=== PATIENT | female | born 1955 | race Caucasian/White ===

== ENCOUNTER 2021-06-13 21:46 | Emergency (ER) | payer MEDICARE, BC, OTHER, SELFPAY ==
[2021-06-13 22:09] VITALS: BP 134/73; PULSE 115; RESP 18; TEMP 36.9; O2SAT 93; BMI 51.5
--- NOTE | 2021-06-14 00:07 | W.ED.BACK ---
HPI - Back Pain/Injury General: Chief Complaint: Back Pain/Injury Stated Complaint: back pain Time Seen by Provider: 06/13/21 23:31 Source: patient and family Mode of arrival: wheelchair Limitations: no limitations History of Present Illness: HPI Narrative: Patient is a 65-year-old female who presents to ED today along with family for complaints of right sided back pain that has been present over the past week. Patient tells me she had identical symptoms back in January that lasted approximately a week and then subsided on its own. She tells me the pain today is worse than it was back in January. She is having radiation down into her right lower extremity below the knee. She is not having any issues with urinary retention or bowel incontinence. She denies saddle anesthesia. MD elicited complaint: back pain Pertinent past history: prior back pain Onset (ago): day(s) Timing: constant Severity: severe Similar Symptoms Previously: Yes Location: right lower back Radiation: right leg below the knee Exacerbating factors: movement and walking Associated symptoms: Reports no associated symptoms; Deny abdominal pain, chills, dysuria, fatigue, fever(s), nausea or vomiting Work related injury: No Review of Systems Const: Denies: fever(s), chills, body aches, fatigue or malaise Card: Denies: chest pain Resp: Denies: dyspnea GI: Denies: abdominal pain, nausea or vomiting : Denies: flank pain, difficulty voiding, dysuria or urinary frequency Musc: Reports: back pain; Denies: neck pain, extremity swelling, joint pain or joint swelling Neuro: Denies: headache(s), numbness in extremities, weakness in extremities or sensory changes Physical Exam Const: COMMON NORMALS: no acute distress, patient oriented x3, no limitations and alert NUTRITIONAL APPEARANCE: obese morbidly obese ORIENTATION/CONSCIOUSNESS: Yes awake, Yes oriented to person, Yes oriented to place and Yes oriented to time HENMT: COMMON NORMALS: normocephalic and atraumatic HEAD & SCALP: normocephalic and atraumatic Resp: COMMON NORMALS: normal respiratory effort Back/Pelvis: THORACIC SPINE/UPPER BACK: No thoracic spinal tenderness and No paraspinal muscle spasm LUMBAR SPINE/LOWER BACK: Yes pain with ROM, No lumbar spinal tenderness, Yes paraspinal muscle tenderness Lumbar paraspinal muscle tenderness: right and No paraspinal muscle spasm PELVIS: Yes sciatic notch tenderness on the right SACROILIAC JOINTS: Yes SI joint(s) abnormal (R) SACRUM: no tenderness BACK IMAGE (FEMALE): 1. TTP Neuro: COMMON NORMALS: patient oriented x3, moves all extremities, no focal motor deficits and no sensory deficits noted SENSORIUM/ORIENTATION: Yes alert, Yes oriented to person, Yes oriented to place and Yes oriented to time Skin: COMMON NORMALS: no rashes or lesions noted GENERAL SKIN EXAM: no rashes or lesions noted Course Vital Signs: Vital signs: Vital Signs Temperature 98.4 F 06/13/21 22:09 Pulse Rate 115 H 06/13/21 22:09 Respiratory Rate 18 06/13/21 22:09 Blood Pressure 134/73 06/13/21 22:09 Pulse Oximetry 93 06/13/21 22:09 Discharge Plan Discharge Patient Disposition: Home Clinical Impression: Sciatica Qualifiers: Laterality: right Qualified Code(s): M54.31 - Sciatica, right side Condition: Stable Prescriptions: New cyclobenzaprine 10 mg tablet 10 mg PO TID Qty: 14 RF: 0 prednisone 10 mg tablet 60 mg PO DAILY 5 Days Qty: 30 RF: 0 Discharge Orders: Discharge ED (Routine); Ordered 06/14/21 Ordered By: Gladys Rushing Patient Instructions: Sciatica (ED) Coding Level of Care Code 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
[2021-06-14] MEDS: morphine 4 mg/mL SDV 1 mL IM (00:50)
[2021-06-14] MEDS: dexamethasone 10 mg/mL INJ 8 MG IM (00:50)
[2021-06-14] MEDS: ketorolac 30 mg/mL INJ IM (00:50)
== END 2021-06-14 01:30 | disposition home or self-care (01) ==
PROVIDERS: Emergency Provider Physician Assistant
DX: M54.31 Sciatica, right side (principal)
CPT/HCPCS: 96372; 99283; J1100; J1885; J2270

== ENCOUNTER 2022-10-08 12:31 | Emergency (ER) | payer MEDICARE, BC, SELFPAY ==
[2022-10-08 12:53] VITALS: BP 160/83; PULSE 111; RESP 16; TEMP 36.4; O2SAT 95
[2022-10-08 13:06] LABS: Basophils # 0.1 10^3/uL (0.0-0.1); Basophils % 0.8 %; Eosinophils # 0.4 10^3/uL (0.0-0.8); Eosinophils % 5.4 %; Hematocrit 39.9 % (37.0-47.0); Hemoglobin 12.4 g/dL (11.5-15.3); Lymphocytes % 27.1 %; Mean Corpuscular HGB Conc 31.1 g/dL (30.0-36.0); Mean Corpuscular Hemoglobin 29.2 pg (28.0-34.0); Mean Corpuscular Volume 94.1 fl (81-99); Mean Platelet Volume 10.3 fL (7.4-10.4); Monocytes # 0.6 10^3/uL (0.2-0.9); Monocytes % 7.9 %; Neutrophils # 4.34 10^3/uL (1.8-7.7); Neutrophils % 58.4 %; Nucleated Red Blood Cells % 0 %; Platelet Count 329 10^3/cmm (130-400); Red Blood Count 4.24 10^6/uL (4.1-5.3); Red Cell Distribution Width 15.8 % (12.1-15.1); White Blood Count 7.4 10^3/uL (4.0-10.0)
[2022-10-08 13:19] LABS: Alanine Aminotransferase 9 U/L (0-33); Albumin Level 4.5 g/dL (3.5-5.2); Alkaline Phosphatase 94 U/L (35-105); Anion Gap 18.8 (5-19); Aspartate Amino Transferase 25 U/L (0-32); Blood Urea Nitrogen 33 mg/dL (8-23); Carbon Dioxide 22 mmol/L (22-29); Chloride 105 mmol/L (98-107); Globulin 3.6 g/dL (1.3-4.6); Glomerular Filtration Rate 37.3 mL/min (90-130); Glucose 98 mg/dL (65-115); Lipase 190 U/L (13-60); Osmolality Calculated 299 mOsm/kg (285-295); Potassium 4.8 mmol/L (3.5-5.1); Sodium 141 mmol/L (136-145); Total Bilirubin 0.3 mg/dL (0.15-1.2); Total Protein 8.1 g/dL (6.6-8.7)
== END 2022-10-08 13:42 | disposition left against medical advice (07) ==
PROVIDERS: Emergency Medicine; Emergency Provider Family Medicine; PCP Family Medicine
DX: M54.31 Sciatica, right side (principal)
CPT/HCPCS: 36415; 80053; 83690; 85025

== ENCOUNTER 2023-01-28 00:59 | Observation (INO) | payer MEDICARE, SELFPAY ==
[2023-01-28] VITALS (148 sets, daily range): BP systolic 82–127; BP diastolic 57–95; PULSE 72–108; RESP 9–27; TEMP 35.7–36.6; O2SAT 85–100; BMI 65.2; BMI 51.5
[2023-01-28 01:12] LABS: Glucose Point of Care 247 mg/dL (70-110)
--- NOTE | 2023-01-28 01:12 | XRR_ITS ---
PROCEDURE INFORMATION: Exam: XR Chest Exam date and time: 01/28/2023 1:30 AM Age: 67 years old Clinical indication: Cough and other: Low BP; Additional info: Hypotension, cough TECHNIQUE: Imaging protocol: Radiologic exam of the chest. Views: 1 view. COMPARISON: CR XR abdomen min 2V [id number] 10/08/2022 3:30 PM FINDINGS: Lungs: Unremarkable. No consolidation. Pleural spaces: Unremarkable. No pleural effusion. No pneumothorax. Heart/Mediastinum: Unremarkable. No cardiomegaly. Bones/joints: Unremarkable. XR/XR chest 1V portable [id number] IMPRESSION: No acute findings.
--- NOTE | 2023-01-28 01:16 | ECG_ITS ---
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 Measurements Intervals [place] Rate: 106 P: 27 GA: 219 QRS: -50 QRSD: 118 T: 89 QT: 318 QTc: 423 Interpretive Statements SINUS TACHYCARDIA WITH FIRST DEGREE AV BLOCK LEFT ANTERIOR FASCICULAR BLOCK [QRS AXIS <= -45, QR IN I, RS IN II] LEFT VENTRICULAR HYPERTROPHY AND ST-T CHANGE [VOLTAGE CRITERIA PLUS ST/T ABNORMALITY] POSSIBLE ANTEROLATERAL MYOCARDIAL INFARCTION , OF INDETERMINATE AGE [30 ms Q WAVE IN I/aVL/V3-V6] No previous ECG available for comparison Electronically Signed On 01-28-2023 16:02:03 CDT by Daniel Sotelo M.D. [id number]
[2023-01-28 01:24] LABS: Basophils % 0.2 %; Eosinophils # 0.3 10^3/uL (0.0-0.8); Eosinophils % 2.5 %; Hematocrit 38.9 % (37.0-47.0); Hemoglobin 11.4 g/dL (11.5-15.3); Lymphocytes # 1.9 10^3/uL (0.8-4.8); Mean Corpuscular HGB Conc 29.3 g/dL (30.0-36.0); Mean Corpuscular Hemoglobin 27.9 pg (28.0-34.0); Mean Corpuscular Volume 95.1 fl (81-99); Mean Platelet Volume 11.2 fL (7.4-10.4); Monocytes # 0.6 10^3/uL (0.2-0.9); Monocytes % 4.6 %; Neutrophils # 9.71 10^3/uL (1.8-7.7); Neutrophils % 77.3 %; Nucleated Red Blood Cells % 0 %; Platelet Count 310 10^3/cmm (130-400); Red Blood Count 4.09 10^6/uL (4.1-5.3); Red Cell Distribution Width 15.3 % (12.1-15.1); White Blood Count 12.6 10^3/uL (4.0-10.0)
[2023-01-28] MEDS: sodium chloride 0.9% 1,000 ML 999 ML IV ×3 (01:27→02:38)
[2023-01-28 01:30] LABS: INR 1.05 (0.8-1.2); Partial Thromboplastin Time 24.6 SECONDS (23.9-36.7)
--- NOTE | 2023-01-28 01:34 | W.ED.GENADLT ---
HPI - General Adult General: Chief complaint: General Medical Stated complaint: BG/HTN/itching Time Seen by Provider: 01/28/23 01:03 History of Present Illness: 67-year-old morbidly obese female who lives at home alone. She presents after becoming concerned this evening regarding a rash on her upper extremities and across her chest that itched violently. She also experienced dizziness and generalized weakness. She notes that she has not felt well for a few days. She has been battling constipation, and was placed on lactulose which she has been taking for about a week. She notes that she has had 4 bowel movements in the last day or so. She is having some stomach cramps. She has developed a cough. The rash is improved after administration of 25 mg of IV Benadryl in the ambulance. EMS crew noted her to have a soft blood pressure, as low as 80s systolic, and to be mildly tachycardic. This continues in the ER. She denies any fever Onset (ago): hour(s) Location: abdomen Radiation: non-radiation Severity: mild Quality: other (Cramping) Pain Consistency: intermittent Associated symptoms: Reports cough, decreased appetite, rash and weakness (Generalized); Deny chest pain, confusion, diaphoresis, dyspnea, fevers/chills, headache(s), nausea, palpitations, short of breath or syncope Review of Systems Const: Denies: fever(s), chills or diaphoresis Eyes: Denies: change in vision ENMT: Denies: throat pain Card: Denies: chest pain, palpitations or syncope Resp: Reports: non-productive cough; Denies: dyspnea GI: Reports: abdominal pain and GI cramping; Denies: nausea or hematochezia : Denies: difficulty voiding Skin/Breast: Reports: rash, pruritus and erythema Neuro: Denies: headache(s) or confusion [facility] ED PFSH: Medical History (Updated 01/28/23 @ 04:26 by Zeferino Lui MD) DM type 2 (diabetes mellitus, type 2) Gout HLD (hyperlipidemia) HTN (hypertension) Hypothyroidism Lumbago NSAID long-term use Sciatica Snake bite Solitary kidney Surgical History History of ankle surgery Family History Other Diabetes Heart disease Social History Lives independently: Yes Household members: none Physical Exam Const: GENERAL APPEARANCE: cooperative, ill appearing (Mildly) and frail appearing NUTRITIONAL APPEARANCE: obese ORIENTATION/CONSCIOUSNESS: Yes awake, Yes oriented to person, Yes oriented to place and Yes oriented to time HENMT: COMMON NORMALS: normocephalic, atraumatic and Normal external nose present HEAD & SCALP: normocephalic and atraumatic FACE & SINUS: normal facial exam and face symmetric NOSE: Normal external nose present Eye: COMMON NORMALS: Equal, round and reactive pupils present and EOMs intact bilaterally PUPIL: Yes Equal, round and reactive pupils present Neck/C-Spine: GENERAL: Yes trachea midline Chest: CHEST: Yes Symmetrical chest wall rise Resp: COMMON NORMALS: normal respiratory effort, No use of accessory muscles and clear to auscultation bilaterally AUSCULTATION: clear to auscultation bilaterally Cardio: COMMON NORMALS: regular rhythm RATE: tachycardic RHYTHM: regular rhythm GI: COMMON NORMALS: Normal to inspection, nondistended, normoactive bowel sounds present and Soft to palpation PALPATION: Yes Soft to palpation and Yes Tenderness to palpation present (GI) (Periumbilical) Extremity: GENERAL: Yes edema (Mild) Neuro: SENSORIUM/ORIENTATION: Yes oriented to person, Yes oriented to place and Yes oriented to time Psych: COMMON NORMALS: mental status grossly normal Skin: NARRATIVE SKIN EXAM: No urticarial lesions. Faint redness across the chest. Course Consultations: Consultation #1: Ngozi Vital Signs: Vital signs: Vital Signs Temperature 96.3 F L 01/28/23 04:06 Pulse Rate 95 01/28/23 04:15 Respiratory Rate 22 H 01/28/23 04:15 Blood Pressure 124/95 01/28/23 04:15 Pulse Oximetry 93 01/28/23 04:15 Oxygen Delivery Me thod 01/28/23 03:46 Oxygen Flow Rate 4 01/28/23 03:15 [facility] - General Adult Medical Decision Making 67-year-old female who is feeling unwell. She was hypotensive on arrival, and remained so after 1 L bolus. 2 more liters of been ordered. This patient is morbidly obese so 30 mL/kg bolus is not possible in this patient. Blood pressure has improved after 3 L, but she remains tachycardic. Blood pressure has been as low as 82 systolic. Currently 120. CBC shows a white blood cell count of 12.6 with a hemoglobin of 11.4. Her CRP however is only 8.2. Urinalysis is negative for urinary tract infection. Her BNP is only 103. She has acute kidney injury with a creatinine above her baseline at 2.6. Her lactate is 3.5. Blood cultures have been sent, she has been covered with Zosyn empirically although there does not seem to be a source of infection. Chest x-ray is negative for pneumonia or other acute finding. Abdominal CT does not reveal a source either. Because of the hypotension requiring significant fluid bolus, she will go to the ICU today. Spoke to the hospitalist who agrees to admit. Lab Data 01/28/23 01:05 01/28/23 01:05 Radiology Impressions Chest X-Ray 01/28/23 01:12 IMPRESSION: No acute findings. Abdomen/Pelvis CT 01/28/23 02:03 IMPRESSION: Negative for acute abdominopelvic pathology. COMMENTS: Consistent with the [place] [employer]'s Incidental Findings Committee white paper (J Am Theresa Radiol 2018): Any incidental renal lesion less than 1 cm or classified as too small to characterize, or any incidental cystic renal lesion characterized as simple-appearing, is likely benign. No follow-up imaging is recommended for these lesions per consensus recommendations based on imaging criteria. Laboratory Results WBC 12.6 10^3/uL (4.0-10.0) H 01/28/23 01:05 RBC 4.09 10^6/uL (4.1-5.3) L 01/28/23 01:05 Hgb 11.4 g/dL (11.5-15.3) L 01/28/23 01:05 Hct 38.9 % (37.0-47.0) 01/28/23 01:05 MCV 95.1 fl (81-99) 01/28/23 01:05 MCH 27.9 pg (28.0-34.0) L 01/28/23 01:05 MCHC 29.3 g/dL (30.0-36.0) L 01/28/23 01:05 RDW 15.3 % (12.1-15.1) H 01/28/23 01:05 Plt Count 310 10^3/cmm (130-400) 01/28/23 01:05 MPV 11.2 fL (7.4-10.4) H 01/28/23 01:05 Neut % (Auto) 77.3 % 01/28/23 01:05 Lymph % (Auto) 15.0 % 01/28/23 01:05 [place] % (Auto) 4.6 % 01/28/23 01:05 Eos % (Auto) 2.5 % 01/28/23 01:05 Baso % (Auto) 0.2 % 01/28/23 01:05 Neut # (Auto) 9.71 10^3/uL (1.8-7.7) H 01/28/23 01:05 Lymph # (Auto) 1.9 10^3/uL (0.8-4.8) 01/28/23 01:05 [place] # (Auto) 0.6 10^3/uL (0.2-0.9) 01/28/23 01:05 Eos # (Auto) 0.3 10^3/uL (0.0-0.8) 01/28/23 01:05 Baso # (Auto) 0.0 10^3/uL (0.0-0.1) 01/28/23 01:05 Nucleated RBC % (auto) 0 % 01/28/23 01:05 Nucleated RBCs # 0.0 /100WBC 01/28/23 01:05 PT 14.10 SECONDS (12.1-14.9) 01/28/23 01:05 INR 1.05 (0.8-1.2) 01/28/23 01:05 APTT 24.6 SECONDS (23.9-36.7) 01/28/23 01:05 Sodium 140 mmol/L (136-145) 01/28/23 01:05 Potassium 4.3 mmol/L (3.5-5.1) 01/28/23 01:05 Chloride 105 mmol/L (98-107) 01/28/23 01:05 Carbon Dioxide 20 mmol/L (22-29) L 01/28/23 01:05 Anion Gap 19.3 (5-19) H 01/28/23 01:05 BUN 44 mg/dL (8-23) H 01/28/23 01:05 Creatinine 2.6 mg/dL (0.5-0.9) H 01/28/23 01:05 GFR Calculation 18.3 mL/min (90-130) L 01/28/23 01:05 Glucose 226 mg/dL (65-115) H 01/28/23 01:05 POC Glucose 247 mg/dL (70-110) H 01/28/23 01:08 Calculated Osmolality 308 mOsm/kg (285-295) H 01/28/23 01:05 Lactate 3.5 mmol/L (0.5-2.2) H 01/28/23 01:05 Calcium 10.8 mg/dL (8.5-10.5) H 01/28/23 01:05 Magnesium 1.0 mg/dL (1.7-2.3) L 01/28/23 01:05 Total Bilirubin 0.2 mg/dL (0.15-1.2) 01/28/23 01:05 AST 22 U/L (0-32) 01/28/23 01:05 ALT < 5 U/L (0-33) 01/28/23 01:05 Alkaline Phosphatase 62 U/L (35-105) 01/28/23 01:05 Troponin T Baseline 16 ng/L (0-10) H 01/28/23 01:05 Troponin T 120 Minute 19.07 ng/L (0-10) H 01/28/23 03:10 Delta Troponin T 3.07 ABS# (0-10) 01/28/23 03:10 C-Reactive Protein 8.2 mg/L (0.0-4.9) H 01/28/23 01:05 NT-Pro-B Natriuret Pep 103 pg/mL (0-125) 01/28/23 01:05 Total Protein 5.7 g/dL (6.6-8.7) L 01/28/23 01:05 Albumin 3.3 g/dL (3.5-5.2) L 01/28/23 01:05 Globulin 2.4 g/dL (1.3-4.6) 01/28/23 01:05 TSH 6.20 uIU/mL (0.27-4.20) H 01/28/23 01:42 Random Cortisol 22.73 ug/dL (2.47-19.5) H 01/28/23 01:42 Urine Color Yellow (Yellow) 01/28/23 00:25 Urine Appearance Sl hazy (CLEAR) A 01/28/23 00:25 Urine pH 5 (5-7) 01/28/23 00:25 Ur Specific [place] 1.025 (1.005-1.030) 01/28/23 00:25 Urine Protein 2+ (Negative) H 01/28/23 00:25 Urine Glucose (UA) Norm (Normal) 01/28/23 00:25 Urine Ketones 1+ (Negative) H 01/28/23 00:25 Urine Blood Neg (Negative) 01/28/23 00:25 Urine Nitrate Negative (Negative) 01/28/23 00:25 Urine Bilirubin 1+ (Negative) H 01/28/23 00:25 Urine Urobilinogen 1 mg/dL (Negative) H 01/28/23 00:25 Ur Leukocyte Esterase Trace (Negative) H 01/28/23 00:25 Urine RBC 0-4 /hpf (0-2) H 01/28/23 00:25 Urine WBC 5-10 /hpf (0-5) H 01/28/23 00:25 Ur Squamous Epith Cells 0-4 /hpf (0-5) H 01/28/23 00:25 Calcium Oxalate Crystal 0-4 /hpf H 01/28/23 00:25 Amorphous Sediment 1+ /hpf 01/28/23 00:25 Urine Bacteria Trace /hpf (NONE) 01/28/23 00:25 Ur Random Sodium 49 mmol/L 01/28/23 00:25 Urine Creatinine 333 mg/dL (28-217) H 01/28/23 00:25 Critical Care Time Critical Care Time: Critical Care Time: Yes Total Critical Care Time: 35 Attestation: This case had a high probability of a clinically significant, sudden, or life threatening deterioration of this patient's condition which required my full and direct attention, intervention and personal management. Time is independent of any procedures performed. 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
[2023-01-28 01:41] LABS: Lactate (Lactic Acid level) 3.5 mmol/L (0.5-2.2)
[2023-01-28 01:51] LABS: Alanine Aminotransferase < 5 U/L (0-33); Albumin Level 3.3 g/dL (3.5-5.2); Alkaline Phosphatase 62 U/L (35-105); Blood Urea Nitrogen 44 mg/dL (8-23); C Reactive Protein 8.2 mg/L (0.0-4.9); Calcium 10.8 mg/dL (8.5-10.5); Carbon Dioxide 20 mmol/L (22-29); Chloride 105 mmol/L (98-107); Globulin 2.4 g/dL (1.3-4.6); Glomerular Filtration Rate 18.3 mL/min (90-130); Glucose 226 mg/dL (65-115); NT Pro B Type Natriuretic Pept 103 pg/mL (0-125); Osmolality Calculated 308 mOsm/kg (285-295); Sodium 140 mmol/L (136-145); Total Bilirubin 0.2 mg/dL (0.15-1.2); Total Protein 5.7 g/dL (6.6-8.7)
[2023-01-28 01:57] LABS: Anion Gap 19.3 (5-19); Aspartate Amino Transferase 22 U/L (0-32); Potassium 4.3 mmol/L (3.5-5.1)
[2023-01-28 01:58] LABS: Troponin(5th) Baseline 16 ng/L (0-10)
[2023-01-28 01:59] LABS: Add Urine Culture? No; Add Urine Microscopic? YES; Amorphous Sediment Urine 1+ /hpf; Bacteria Urine TRACE /hpf; Bilirubin Urine 1+ (Negative); Blood Urine Neg (Negative); Calcium Oxalate Crystals Urine 0-4 /hpf; Glucose Urine UA Norm (Normal); Ketones Urine 1+ (Negative); Leukocyte Esterase Urine Trace (Negative); Nitrate Urine Negative (Negative); Protein Urine 2+ (Negative); RBC Urine 0-4 /hpf (0-2); Specific Gravity, Urine 1.025 (1.005-1.030); Squamous Epithelial Cell Urine 0-4 /hpf (0-5); Urine Appearance SL Hazy (CLEAR); Urine Color Yellow (Yellow); Urobilinogen Urine 1 mg/dL (Negative); pH Urine 5 (5-7)
--- NOTE | 2023-01-28 02:03 | CTR_ITS ---
PROCEDURE INFORMATION: Exam: CT Abdomen And Pelvis Without Contrast Exam date and time: 01/28/2023 2:15 AM Age: 67 years old Clinical indication: Abdominal pain; Generalized; Additional info: Abdominal pain, vomiting, diarrhea, hypotension TECHNIQUE: Imaging protocol: Computed tomography of the abdomen and pelvis without contrast. Radiation optimization: All CT scans at this facility use at least one of these dose optimization techniques: automated exposure control; mA and/or kV adjustment per patient size (includes targeted exams where dose is matched to clinical indication); or iterative reconstruction. REPORTING DATA: Count of CT and Cardiac NM exams in prior 12 months: This patient has received 0 known CTs and 0 known cardiac nuclear medicine studies in the 12 months prior to the current study. COMPARISON: CR XR abdomen min 2V [id number] 10/08/2022 3:30 PM RADIATION DOSE METRICS: Total DLP (mGy-cm): 1238.31 FINDINGS: Liver: Normal. No mass. Gallbladder and bile ducts: Cholelithiasis. Gallbladder is relatively contracted. No definite wall thickening. Negative for biliary system dilation. Pancreas: Normal. No ductal dilation. Spleen: Normal. No splenomegaly. Adrenal glands: Normal. No mass. Kidneys and ureters: Left kidney is absent. Simple cortical cyst of the upper right kidney. Negative for hydronephrosis. Negative for renal stones. Stomach and bowel: Mild severity scattered diverticulosis coli. Negative for bowel wall inflammatory changes. Negative for bowel obstruction. Negative for bowel perforation. Negative for pneumatosis intestinalis. No focal bowel mass. Appendix: Normal appendix. Intraperitoneal space: Unremarkable. No free air. No significant fluid collection. Vasculature: Unremarkable. No abdominal aortic aneurysm. Lymph nodes: Unremarkable. No enlarged lymph nodes. Urinary bladder: Bladder is decompressed. Reproductive: Unremarkable as visualized. Bones/joints: The lumbar spine demonstrates marked discogenic and apophyseal joint degenerative changes at multiple levels. Grade 1 L4-L5 spondylolisthesis. No acute fracture. Soft tissues: Unremarkable. CT/CT abdomen pelvis wo con [id number] IMPRESSION: Negative for acute abdominopelvic pathology. COMMENTS: Consistent with the [place] [employer]'s Incidental Findings Committee white paper (J Am Theresa Radiol 2018): Any incidental renal lesion less than 1 cm or classified as too small to characterize, or any incidental cystic renal lesion characterized as simple-appearing, is likely benign. No follow-up imaging is recommended for these lesions per consensus recommendations based on imaging criteria.
[2023-01-28] MEDS: piperacillin-tazobactam 3.375 GM in sodium chloride 0.9% (plus) 50 ML IV ×2 (02:26→15:05)
[2023-01-28] MEDS: ondansetron 2 mg/ML SDV 2 mL 4 MG IVP (02:33)
[2023-01-28] MEDS: fentaNYL 50 mcg/mL INJ 2mL IVP (02:37)
--- NOTE | 2023-01-28 03:16 | ECG_ITS ---
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 Measurements Intervals [place] Rate: 97 P: 25 HI: 241 QRS: -40 QRSD: 124 T: 36 QT: 324 QTc: 412 Interpretive Statements SINUS RHYTHM WITH FIRST DEGREE AV BLOCK LEFT AXIS DEVIATION [QRS AXIS < -30] VOLTAGE CRITERIA FOR LVH [MEETS CRITERIA IN ONE OF: R(aVL), S(V1), R(V5), R(V5/V6)+S(V1)] POSSIBLE ANTERIOR MYOCARDIAL INFARCTION , OF INDETERMINATE AGE [30 ms Q WAVE IN V3/V4, OR R < 0.2 mV IN V4] Compared to ECG 01/28/2023 01:11:51 Left-axis deviation now present Sinus tachycardia no longer present Left anterior fascicular block no longer present ST (T wave) deviation no longer present Myocardial infarct finding still present Electronically Signed On 01-28-2023 16:05:17 CDT by Daniel Sotelo M.D. [id number]
[2023-01-28 03:33] LABS: Cortisol Random 22.73 ug/dL (2.47-19.5)
[2023-01-28 03:35] LABS: Troponin 5 2HR 19.07 ng/L (0-10)
--- NOTE | 2023-01-28 03:44 | P.HP_ITS ---
Providers/Chief Complaint Admitting Physician: Zeferino Lui Primary Care Provider: Lexus Umanzor MD Chief Complaint: BG/HTN/itching History of Present Illness 67-year-old lady with history of solitary kidney, DM2, HTN, HLD, hypothyroidism, chronic NSAID use, gout came into ER for evaluation due to malaise, generalized weakness of several days, previously constipated, has been taking lactulose for a while, now with multiple loose stools, abdominal cramping/pain. Today she was also dizzy/subjectively presyncopal. At home was found tachycardic, hypotensive by EMS also with intensely pruritic rash across the chest and arms for which she received 25 mg of Benadryl. By the time of arrival to the hospital rash has resolved. In ER blood pressure 82/67, sinus tachycardia 108, hypothermic 96.3F. Mild abdominal cramping, pain. Leukocytosis 12.6, anemia 11.4. Bicarb 20, anion gap 19.3, lactic acid 3.5. BUN 44, creatinine 2.6. Glucose 247. Calcium 10.8, magnesium 1. Unremarkable liver Giurgius. Baseline troponin 16, troponin 19. NT proBNP only 103. EKG with first-degree AV block. LVH. CRP 8.2. Total protein 5.7, albumin 3.3. Globulin 2.4. TSH 6.2. Random cortisol 22.7. UA hazy with 2+ protein, 1+ ketones, 1+ bilirubin, 1 urobilinogen, 5-10 WBC, 0-4 RBC, 0.4 SEC, 0-4 calcium oxalate crystals. Amorphous sediment. Trace bacteria. Chest x-ray unremarkable. CT abdomen pelvis negative for acute abdominal pathology. Received 3 L fluid bolus, empirically started on Zosyn after collection of blood cultures. Received pain and nausea medication. Review of Systems Const: Reports: malaise and change in sleep pattern (Insomnia); Denies: fever(s) or chills ENMT: Denies: throat pain or ear or mastoid pain Card: Denies: chest pain, edema, pre-syncope or dyspnea on exertion Resp: Denies: dyspnea, productive cough, change in phlegm color or hemoptysis GI: Reports: abdominal pain (periumbilical cramping), nausea, diarrhea and constipation; Denies: vomiting, hematochezia or melena : Denies: flank pain, urinary frequency or hematuria Musc: Denies: back pain, joint swelling or joint redness Skin/Breast: Reports: rash (Pruritic rash on chest, arms); Denies: new lesions Neuro: Denies: headache(s), numbness in extremities, weakness in extremities, dizziness, confusion or seizure-like activity Endo: Denies: polyuria or polydipsia Juan Alberto/Lymph: Denies: easy bleeding or tender lymph nodes All/Imm: Reports: other (Itchy rash on chest, arms); Denies: tongue swelling Medications/Allergies Home Medications Medication Instructions Recorded Confirmed Last Taken Type cyclobenzaprine 10 mg tablet 10 mg PO TID #14 tabs 06/14/21 Unknown Rx Allergies Allergy/AdvReac Type Severity Reaction Status Date / Time No Known Allergies Allergy Verified 01/28/23 01:10 PFSH Acute PFSH: Medical History DM type 2 (diabetes mellitus, type 2) Gout HLD (hyperlipidemia) HTN (hypertension) Hypothyroidism Lumbago NSAID long-term use Sciatica Snake bite Solitary kidney Surgical History History of ankle surgery Family History Other Diabetes Heart disease Social History (Updated 01/28/23 @ 04:56 by Zeferino Lui MD) Smoking and tobacco status: never smoked Lives independently: Yes Household members: none Marital status: Single Vitals/I&O/Wt Last Vital Signs Temp 96.4 F L 01/28/23 01:01 Pulse 93 01/28/23 03:27 Resp 20 H 01/28/23 03:27 BP 125/74 01/28/23 03:27 Pulse Ox 99 01/28/23 03:27 O2 Del Method 01/28/23 03:15 O2 Flow Rate 4 01/28/23 03:15 01/27/23 01/27/23 01/28/23 14:59 22:59 06:59 Intake Total 2049 Balance 2049 Weight last 48 hrs Weight 172.365 kg Physical Exam Const: COMMON NORMALS: patient oriented x3 and alert GENERAL APPEARANCE: cooperative NUTRITIONAL APPEARANCE: obese morbidly obese ORIENTATION/CONSCIOUSNESS: Yes awake HENMT: COMMON NORMALS: oropharynx normal Neck/C-Spine: COMMON NORMALS: no JVD Resp: COMMON NORMALS: normal respiratory effort and clear to auscultation bilaterally AUSCULTATION: clear to auscultation bilaterally Cardio: COMMON NORMALS: no JVD, regular rhythm, S1 normal heart sound present, S2 normal heart sound present and No murmurs present (Cardio) RHYTHM: regular rhythm HEART SOUNDS: S1 normal heart sound present and S2 normal heart sound present GI: COMMON NORMALS: Normal to inspection, nondistended, normoactive bowel sounds present and Soft to palpation PALPATION: Yes Soft to palpation and Yes Tenderness to palpation present (GI) (Periumbilical) Extremity: COMMON NORMALS: no joint enlargement and no pedal edema Neuro: COMMON NORMALS: patient oriented x3 and moves all extremities SENSORIUM/ORIENTATION: Yes alert Skin: COMMON NORMALS: no rashes or lesions noted GENERAL SKIN EXAM: no rashes or lesions noted OTHER: Pruritic rash on chest and arms resolved. Bilateral angular cheilitis. Sepsis: Is patient septic: Yes Focused sepsis exam performed: Yes Data 01/28/23 01:05 01/28/23 01:05 Micro: Microbiology 01/28/23 01:41 Blood Culture - Preliminary Blood SPECIMEN COLLECTED 01/28/23 01:38 Blood Culture - Preliminary Blood SPECIMEN COLLECTED A&P Assessment and plan (1) SIRS (systemic inflammatory response syndrome): Possible sepsis with leukocytosis 12.6, predominantly neutrophilic, sinus tachycardia 108, on presentation hypotensive, with lactic acidosis 3.5. Does not have a clear source of sepsis. Has been having loose stools/diarrhea, will collect for C. difficile, stool culture, although has also been taking lactulose after having constipation. Rash at home pruritic, across chest and arms, resolved after Benadryl, currently no rash. Noted UA with some abnormality, 5- 10 WBC, trace bacteria, denies urinary symptoms. Requesting urine culture. No meningeal signs to suggest [employer] infection. Blood culture collected in ER. Follow-up. For now empirically continue Zosyn, reassess. (2) Acute hypotension: Possibly hypovolemic after multiple loose stools, does appear slightly dehydrated, has received fluid challenge in ER with good response. Cannot exclude possible septic shock given the above, with endorgan injury with SHANA, hypoperfusion with lactic acidosis, for now empirically continue Zosyn. Hold lisinopril and amlodipine. Additionally appears to be hypothyroid as below. Cortisol checked and appears adequate. Abnormal troponin. LVH on EKG. Assess TTE. Anemia, check Hemoccult. (3) SHANA (acute kidney injury): Creatinine 2.6, BUN 44. She has only a solitary kidney. Prior creatinine 1.4 in September 2020. Does take naproxen at home, discussed with her to discontinue. Please DC at discharge. Hold lisinopril. Urine studies obtained, my interpretation prerenal SHANA, she was hypotensive on presentation. Received fluid challenge. Reassess renal function, monitor I&O. No obstruction on CT. Check CK. (4) Metabolic acidosis: Metabolic acidosis with lack cirrhosis, however, also ketones in urine with history of diabetes. Malaise, abdominal discomfort, dehydration, hypotension, hyperglycemia, may be in mild to moderate ketoacidosis as well. Check serum ketones, check VBG. States that she takes metformin at home. Hold here. Sliding scale insulin for now pending other studies. Additionally in SHANA may be contributing to acidosis. Reassess renal function after fluid challenge. Additionally multiple loose stools after lactulose. (5) Abnormal urinalysis: Denies urinary symptoms. Urine culture requested. Follow-up. For now empirically on Zosyn as above. (6) Troponin level elevated: Discussed with her abnormal troponin level as well. Baseline 16, 2-hour troponi n 19.07. Suspect demand ischemia secondary to hypotension. She denies any chest pain or pressure. Does have risk factors of CAD. Will assess TTE. Consider further assessment/risk stratification here or outpatient depending on clinical progress and findings. Continue low-dose aspirin. Consider beta-rommel when no longer hypotensive. Consider resuming statin after CK results. (7) Hypothermia: There are other. TSH checked, noted elevated 6.2. On levothyroxine at home, dose currently unknown. Requested medications to be confirmed. Check free T4. Consider increasing levothyroxine dose. Cortisol appears adequate. (8) DM type 2 (diabetes mellitus, type 2): On metformin at home. Sliding scale insulin here. Additionally requesting serum ketones, VBG. Urine ketones positive. Metabolic acidosis. Dehydrated/hypovolemic. (9) Hypomagnesemia: Replace magnesium. Recheck level. (10) NSAID long-term use: Discontinue Only has 1 kidney. (11) Cheilitis: Bilateral angular cheilitis. Could be secondary to difficulty with mastication. Does have anemia as well. Check B12, consider other B vitamins, check iron panel. Consider follow-up for assessment of other causes and deficiencies. (12) Anemia: Normocytic anemia. Hemoglobin 11.4. Previously 12.4 in September 2022. This is while she is also hypovolemic, suspect this may be lower after fluid resuscitation. Check Hemoccult. TIBC, ferritin. Has angular cheilitis as well. Check B12. Folic acid. (13) Pruritic rash: Resolved with 25 mg Benadryl in route to the hospital. Unclear cause. Sounds possibly urticarial/allergic but rash is now resolved, no further details available. Follow-up for recurrence. Review medications once available. (14) Abdominal cramping: Again having periumbilical abdominal cramping. Check lipase. CT abdomen pelvis results appreciated, no acute abnormality noted. May be due to hypermobile bow el with diarrhea, possibly secondary to lactulose. Additionally checking C. difficile, stool culture as above. Does have bilateral colitis, CRP only mildly elevated. Does not seem to have history of IBD, but if symptoms do not resolve with holding bowel regimen or recurrent, may be something to consider. No hematochezia or melena. Required IV fentanyl for pain in ER. Monitor condition. (15) Hypothyroidism: Noted TSH 6.2. Requested free T4. Requested medications to be confirmed. Please review, resume consider increasing levothyroxine. Follow-up thyroid function after discharge. (16) Hypercalcemia: Calcium 10.8, albumin 3.3, but was hypovolemic on presentation. Received fluid challenge. Repeat calcium level. Follow-up for persistent hypercalcemia. (17) LVH (left ventricular hypertrophy): By EKG. History of hypertension. Currently hypotensive. Assess TTE. (18) Morbid obesity: Follow-up with primary provider for weight loss options. Plan Loose stools: After taking lactulose and MiraLAX. Hold. For loose/diarrhea stools. Check C. difficile, stool culture. Recent constipation: Was taking lactulose and MiraLAX, does not want to take them anymore. Insomnia: Request for something to help her sleep. Discussed with her regarding trazodone. She would like to try it. HTN: Antihypertensives on hold currently. HLD Requested home medications to be confirmed, please reconcile once available. ER documentation reviewed, discussed with ER physician. Attestations Medical Necessity Statement*: Admission of over 2 midnights anticipated for assessment management of SIRS, possible sepsis with unclear source, hypovolemia, metabolic acidosis, ketosis, SHANA, hypomagnesemia, hypercalcemia, additional comorbidities as above. and High Time for a total of 95 minutes, includes reviewing past or interval history, examining/interviewing patient, placing orders, counseling patient/family/other support, communicating with other healthcare providers, documenting encounter and coordinating care Diagnoses SIRS (systemic inflammatory response syndrome) R65.10 Acute hypotension I95.9 SHANA (acute kidney injury) N17.9 Metabolic acidosis E87.20 Abnormal urinalysis R82.90 Troponin level elevated R77.8 Hypothermia T68.XXXA DM type 2 (diabetes mellitus, type 2) E11.9 Hypomagnesemia E83.42 NSAID long-term use Z79.1 Cheilitis K13.0 Anemia D64.9 Pruritic rash L28.2 Abdominal cramping R10.9 Hypothyroidism E03.9 Hypercalcemia E83.52 LVH (left ventricular hypertrophy) I51.7 Morbid obesity E66.01
[2023-01-28 03:45] LABS: Troponin 5 2HR Delta 3.07 ABS# (0-10)
--- NOTE | 2023-01-28 03:54 | USCV_ITS ---
Moerna Eubanks Age: 67 Gender: F : 1955 Exam Date: 01/28/2023 08:42 Ordering Phys: Zeferino Lui MD Technologist: Reggie Camacho Exam Location: [facility] [place] Indication: chf chest pain BP: 100 / 54 HR: 78 Rhythm: Sinus Technical Quality: Adequate MEASUREMENTS (Male / Female) Normal Values 2D ECHO LV Diastolic Diameter PLAX 3.4 cm 4.2 - 5.9 / 3.9 - 5.3 cm LV Systolic Diameter PLAX 2.2 cm IVS Diastolic Thickness 0.8 cm 0.6 - 1.0 / 0.6 - 0.9 cm IVS Systolic Thickness 0.8 cm LVPW Diastolic Thickness 0.9 cm 0.6 - 1.0 / 0.6 - 0.9 cm LVPW Systolic Thickness 1.4 cm LVOT Diameter 2.0 cm LV Ejection Fraction 2D Teich 64.5 % LV Ejection Fraction MOD 2C 65.1 % LV Ejection Fraction 2C AL 64.6 % LA Diameter 3.2 cm IVC Diameter 1.6 cm M-MODE Aortic Annulus Diameter 3.2 cm LA Ao Ratio MM 1.1 MV E Point Septal Separation 0.9 cm DOPPLER AV Peak Velocity 101.0 cm/s LVOT Peak Velocity 99.0 cm/s AV Area Cont Eq vti 3.2 cm squared AV Area Cont Eq pk 3.1 cm squared MV Area PHT 5.0 cm squared Mitral E to A Ratio 0.6 MV E' Velocity 39.5 cm/s Mitral E to MV E' Ratio 5.4 Mitral E to LV E' Lateral Ratio 6.8 Mitral E to LV E' Septal Ratio 4.5 TR Peak Velocity 104.0 cm/s TR Peak Gradient 4.3 mmHg TV Peak E Velocity 106.0 cm/s Right Atrial Pressure 3.0 mmHg Pulmonary Artery Systolic Pressu 7.3 mmHg RV Acceleration Time 0.1 s FINDINGS Left Ventricle Normal left ventricular size and systolic function, EF 66 %. No regional wall motion abnormalities.Grade I/IV diastolic dysfunction (abnormal relaxation filling pattern), normal to mildly elevated filling pressures. Right Ventricle The right ventricle is normal in size and function. Right Atrium The right atrium is normal in size. Left Atrium The left atrium is normal in size. Mitral Valve Mildly thickened mitral valve. Aortic Valve No gross abnormalities noted Tricuspid Valve No gross abnormalities noted Pulmonic Valve Not visualized well Pericardium Normal pericardium without effusion. Aorta Normal ascending aorta dimension. IVC Inferior vena cava not visualized. CONCLUSIONS Normal left ventricular size and systolic function, EF 66 %. No regional wall motion abnormalities. Type I diastolic dysfunction. The right ventricle is normal in size and function. Normal cardiac chamber sizes. No significant valvular lesions. There is no pericardial effusion. No similar previous studies are available for comparison Dr Steev Albright MD [facility] (Electronically Signed) Final Date: 28 January 2023 18:23 S
[2023-01-28] MEDS: pantoprazole 40 mg SDV IVP (04:12)
[2023-01-28] MEDS: magnesium sulfate premix 2 GM/50 ML PIGGYBACK IV (04:12)
[2023-01-28] MEDS: heparin 5,000 unit/mL INJ 1 mL 5000 UNIT SUBCUT ×2 (04:12→15:04)
[2023-01-28 04:17] LABS: Urine Creatinine 333 mg/dL (28-217); Urine Random Sodium 49 mmol/L
[2023-01-28 05:49] LABS: Estmated Average Glucose 108; Hemoglobin A1C 5.4 % (4.0-6.0)
[2023-01-28 05:55] LABS: Creatine Phosphokinase 30 U/L (26-192); Ferritin 62 ng/mL (15-150); Iron 30 ug/dL (37-145); Ketone (Acetest) Serum Negative (Negative); Lipase 54 U/L (13-60); Total Iron Binding Capacity 271 mcg/dl; Unsaturated Iron Binding 241 ug/dL (112-347)
[2023-01-28 06:08] LABS: Vitamin B12 417 pg/mL (232-1245)
[2023-01-28 06:09] LABS: Base Excess VBG -0.7 mmol/L (-3.0-3.0); Blood Gas Sample Site Not specified; Blood Gas Sample Type Venous; HCO3 VBG 24.8 mmol/L (24-28); Oxygen Device NC; PCO2 VBG 43.5 mmHg (41-51); PO2 VBG 51.5 mmHg (25-40); Venous Blood Gas Hematocrit 33.3 % (37-47); pH VBG 7.37 (7.32-7.42)
[2023-01-28 06:24] LABS: Free T4 Free Thyroxine 1.63 ng/dL (0.82-1.77)
[2023-01-28 06:26] LABS: Folate Level > 20.0 ng/mL (4.8-37.3)
[2023-01-28 07:21] LABS: Troponin 5 6HR 24.31 ng/L (0-10)
[2023-01-28 07:23] LABS: Troponin 5 6HR Delta 8.31 ng/L (0-12)
[2023-01-28 07:30] LABS: Anion Gap 11.4 (5-19); Blood Urea Nitrogen 42 mg/dL (8-23); Calcium 10.2 mg/dL (8.5-10.5); Carbon Dioxide 24 mmol/L (22-29); Chloride 111 mmol/L (98-107); Glucose 111 mg/dL (65-115); Magnesium 1.5 mg/dL (1.7-2.3); Osmolality Calculated 305 mOsm/kg (285-295); Phosphorus 2.6 mg/dL (2.5-4.5); Potassium 4.4 mmol/L (3.5-5.1); Sodium 142 mmol/L (136-145)
[2023-01-28] MEDS: aspirin 81 mg EC Tablet PO (08:25)
--- NOTE | 2023-01-28 09:26 | ECG_ITS ---
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 Measurements Intervals [place] Rate: 75 P: 32 VT: 248 QRS: -36 QRSD: 125 T: 37 QT: 356 QTc: 398 Interpretive Statements SINUS RHYTHM WITH FIRST DEGREE AV BLOCK LEFT AXIS DEVIATION [QRS AXIS < -30] POSSIBLE LEFT VENTRICULAR HYPERTROPHY [VOLTAGE CRITERIA PLUS LAE OR QRS WIDENING] POSSIBLE LATERAL MYOCARDIAL INFARCTION , PROBABLY OLD [30 ms Q WAVE IN I/aVL/V5/V6] Compared to ECG 01/28/2023 03:15:22 No significant changes Electronically Signed On 01-28-2023 16:05:14 CDT by Daniel Sotelo M.D. [id number]
--- NOTE | 2023-01-28 10:22 | PC.CHAP ---
Pastoral Care Encounter/Spiritual Assessment Type of Contact [] Declined telegraph service clerk visit [] Patient/Family/Request visit [] Outpatient visit [] Follow-up visit [] Physician referral [] Code/Alert [x] Routine visit [] Staff referral [] Actively dying [] Patient sleeping [] Family support [] [] Out of room [] Palliative care [] [] Receiving care in room [] Pre-surgical visit [] Trauma [] Long length of stay [x] ICU visit [] Other: Relational/Emotional Strength [] Patient feels connected with others/family/visitors/staff [] Distress [] Loneliness/isolation [] Abandonment Spirituality of Patient [] Person of Farzaneh [] Attends Religious of their Farzaneh [] Believes in Prayer [] Reads Bible or Sikhism materials [] There are Spiritual issues to be addressed Product Safety Specialist Interventions [x] Prayer [] Active listening [] Non-anxious presence [] Spiritual/emotional support [] Crisis/trauma care [] Spiritual counseling [] Bereavement support [] Provided bereavement packet [] Provided Bible/devotional materials [] Provided toy/stuffed animal, coloring book to patient or family member [] Provided Communion [] Anointing/[place] [] Salvation [x] Completed spiritual assessment [] Other: Impact on Illness or Injury [] Angry [] Fearful [] Anxious [] Often cries [] Exhaustion [] Unable to work [] Unable to attend jain [] Unable to walk/stand [] Unable to read [] Unable to drive [] Unable to eat/drink [] Unable to sleep [] Unable to be with family [] Patient intubated [] Other: Summary Time spent with patient
[2023-01-28 12:02] LABS: Glucose Point of Care 91 mg/dL (70-110)
[2023-01-28] MEDS: lanolin oint 7 gm 1 APPLIC TOPICAL (15:04)
[2023-01-28 16:43] LABS: Glucose Point of Care 84 mg/dL (70-110)
--- NOTE | 2023-01-28 17:21 | PM.MISC ---
Miscellaneous Note Purpose of Documentation: Overnight labs and H&P reviewed. Patient's blood pressure is now more stable. It is 115/69 at the time of assessment. She denies any complaints. Has not had any repeat diarrhea while here. She is complaining of a rash which she had noted even at home. We will add Benadryl for the same. She is awake alert and oriented x3. We will continue IV fluids for now and monitor her closely
[2023-01-28] MEDS: diphenhydrAMINE 12.5 mg/5 mL UDC 10 mL PO (17:59)
[2023-01-28 20:29] LABS: Glucose Point of Care 119 mg/dL (70-110)
[2023-01-28] MEDS: trazodone 50 mg Tablet 25 MG PO (21:01)
[2023-01-29] VITALS (25 sets, daily range): BP systolic 100–130; BP diastolic 57–91; PULSE 69–102; RESP 12–26; TEMP 36.1–36.9; O2SAT 84–98
[2023-01-29] MEDS: piperacillin-tazobactam 3.375 GM in sodium chloride 0.9% (plus) 50 ML IV ×2 (02:36→15:01)
[2023-01-29 03:44] LABS: Basophils % 0.4 %; Eosinophils # 0.5 10^3/uL (0.0-0.8); Eosinophils % 8.8 %; Hematocrit 31.3 % (37.0-47.0); Hemoglobin 9.5 g/dL (11.5-15.3); Lymphocytes # 1.7 10^3/uL (0.8-4.8); Lymphocytes % 30.5 %; Mean Corpuscular HGB Conc 30.4 g/dL (30.0-36.0); Mean Corpuscular Hemoglobin 28.7 pg (28.0-34.0); Mean Corpuscular Volume 94.6 fl (81-99); Mean Platelet Volume 10.6 fL (7.4-10.4); Monocytes # 0.4 10^3/uL (0.2-0.9); Monocytes % 7.7 %; Neutrophils # 2.97 10^3/uL (1.8-7.7); Neutrophils % 52.1 %; Nucleated Red Blood Cells % 0 %; Platelet Count 240 10^3/cmm (130-400); Red Blood Count 3.31 10^6/uL (4.1-5.3); Red Cell Distribution Width 15.1 % (12.1-15.1); White Blood Count 5.7 10^3/uL (4.0-10.0)
[2023-01-29 04:08] LABS: Alanine Aminotransferase < 5 U/L (0-33); Albumin Level 3.1 g/dL (3.5-5.2); Alkaline Phosphatase 54 U/L (35-105); Anion Gap 13.6 (5-19); Aspartate Amino Transferase 22 U/L (0-32); Blood Urea Nitrogen 33 mg/dL (8-23); Calcium 9.4 mg/dL (8.5-10.5); Carbon Dioxide 24 mmol/L (22-29); Chloride 109 mmol/L (98-107); Globulin 2.7 g/dL (1.3-4.6); Glucose 90 mg/dL (65-115); Magnesium 1.3 mg/dL (1.7-2.3); Osmolality Calculated 301 mOsm/kg (285-295); Potassium 4.6 mmol/L (3.5-5.1); Sodium 142 mmol/L (136-145); Total Bilirubin 0.3 mg/dL (0.15-1.2); Total Protein 5.8 g/dL (6.6-8.7)
[2023-01-29] MEDS: heparin 5,000 unit/mL INJ 1 mL 5000 UNIT SUBCUT ×2 (04:38→15:01)
[2023-01-29] MEDS: pantoprazole 40 mg SDV IVP (04:38)
[2023-01-29 07:15] LABS: Glucose Point of Care 86 mg/dL (70-110)
[2023-01-29] MEDS: aspirin 81 mg EC Tablet PO (09:29)
[2023-01-29 10:55] LABS: Glucose Point of Care 121 mg/dL (70-110)
--- NOTE | 2023-01-29 11:54 | PM.PN ---
Subjective Subjective: patient;s diarrhea is resolved. Denies any abdominal pain. Stable renal function. urine output > 1500 cc Medications: Reviewed: Yes Vitals/I&O/Wt Last Vital Signs Temp 98.1 F 01/29/23 07:30 Pulse 74 01/29/23 04:00 Resp 18 01/29/23 04:00 BP 118/73 01/29/23 04:00 Pulse Ox 98 01/29/23 04:00 O2 Del Method 01/29/23 04:00 O2 Flow Rate 2 01/29/23 07:30 01/28/23 01/29/23 01/29/23 22:59 06:59 14:59 Intake Total 550 / 550 20 / 570 50 / 50 Output Total 1500 / 1500 800 / 2300 Balance -950 / -950 -780 / -1730 50 / 50 Weight last 48 hrs Weight 135.624 kg Weight 135.624 kg Weight 136 kg Weight 172.365 kg Physical Exam Narrative: General: No acute distress, AO x3 HEENT: PERRLA, pupils bilaterally equal and reactive, pallors not present Chest: Normal vesicular breath sounds, no added sounds, equal good air entry bilaterally CVS: S1-S2 regular, no murmurs, no tachycardia, no gallops, no rubs Abdomen: Soft, nontender, no organomegaly, bowel sounds present Neuro: No focal deficits, no facial deformity, AO x3, power 5/5 in all limbs Urinary Catheter Management: Can: Cath Placed During This Visit: yes Reason for Continuing Indwelling Catheter: Accurate Measurement of Urinary Output in Critically Ill Patients Urinary Catheter Date of Insertion: 01/28/23 Urinary Catheter Time of Insertion: 04:00 Data 01/29/23 03:24 01/29/23 03:24 Micro: Microbiology 01/28/23 00:25 Urine Culture - Preliminary Urine,Clean Catch 01/28/23 01:41 Blood Culture - Preliminary Blood NEGATIVE TO DATE 01/28/23 01:38 Blood Culture - Preliminary Blood NEGATIVE TO DATE A&P Assessment and plan (1) SIRS (systemic inflammatory response syndrome): Possible sepsis without organ dysfunction with leukocytosis 12.6, predominantly neutrophilic, sinus tachycardia 108, on presentation hypotensive, with lactic acidosis 3.5. Does not have a clear source of sepsis. Has been having loose stools/diarrhea at home which she attributes to use of lactulose. No recurrence of diarrhea since admission here. Unable to collect for C. difficile, stool culture as no BM . Rash at home pruritic, across chest and arms, resolved after Benadryl, currently no rash. may have had component of acute viral gastroenteritis Noted UA with some abnormality, 5-10 WBC, trace bacteria, denies urinary symptoms. negative urine culture thus far Blood culture collected in ER. no growth For now empirically continue Zosyn, plan to discontinue over next 24 hrs if all cx negative Lactate normalized, less suspicious for iscehmic bowel (2) Acute hypotension: Possibly hypovolemic after multiple loose stools, does appear slightly dehydrated, has received fluid challenge in ER with good response. (3) SHANA (acute kidney injury): Creatinine improving She has only a solitary kidney of which she was unaware. continue Hold lisinopril. d/c Nsaids Likely prerenal SHANA from hypotension. Received fluid challenge. (4) Metabolic acidosis: resolved (5) Abnormal urinalysis: Denies urinary symptoms. Urine culture requested. Follow-up. For now empirically on Zosyn as above. (6) Troponin level elevated: Discussed with her abnormal troponin level as well. Baseline 16, 2-hour troponin 19.07. Suspect demand ischemia secondary to hypotension. She denies any chest pain or pressure. Does have risk factors of CAD. TTE Normal left ventricular size and systolic function, EF 66 %. No ?regional wall motion abnormalities. ?Type I diastolic dysfunction. Continue low-dose aspirin. (7) Hypothermia: resolved TSH checked, noted elevated 6.2. t4 normal (8) DM type 2 (diabetes mellitus, type 2): On metformin at home. Sliding scale insulin here. Additionally requesting serum ketones, VBG. Urine ketones positive. Metabolic acidosis. Dehydrated/hypovolemic. (9) Hypomagnesemia: Replace magnesium. Recheck level. (10) NSAID long-term use: Discontinue Only has 1 kidney. (11) Cheilitis: Bilateral angular cheilitis. improving with lanolin (12) Anemia: Normocytic anemia. (13) Pruritic rash: Resolved with 25 mg Benadryl in route to the hospital. (14) Abdominal cramping: resolved (15) Hypothyroidism: (16) Hypercalcemia: resolved (17) LVH (left ventricular hypertrophy): By EKG. (18) Morbid obesity: Follow-up with primary provider for weight loss options. Plan clinically improving, transfer out of ICU, if renal function stable anticipate discharge over next 24 hrs Attestations Medical Necessity Statement*: monitor renal function, urine output Coding Level of Care Code Acute Code for Chg Fwd Diagnoses SIRS (systemic inflammatory response syndrome) R65.10 Acute hypotension I95.9 SHANA (acute kidney injury) N17.9 Metabolic acidosis E87.20 Abnormal urinalysis R82.90 Troponin level elevated R77.8 Hypothermia T68.XXXA DM type 2 (diabetes mellitus, type 2) E11.9 Hypomagnesemia E83.42 NSAID long-term use Z79.1 Cheilitis K13.0 Anemia D64.9 Pruritic rash L28.2 Abdominal cramping R10.9 Hypothyroidism E03.9 Hypercalcemia E83.52 LVH (left ventricular hypertrophy) I51.7 Morbid obesity E66.01
[2023-01-29 12:18] LABS: Lactate (Lactic Acid level) 1.1 mmol/L (0.5-2.2)
[2023-01-29 12:28] LABS: Glucose Point of Care 96 mg/dL (70-110)
[2023-01-29 18:01] LABS: Glucose Point of Care 98 mg/dL (70-110)
[2023-01-29 20:26] LABS: Glucose Point of Care 141 mg/dL (70-110)
[2023-01-29] MEDS: trazodone 50 mg Tablet 25 MG PO (20:34)
[2023-01-29] MEDS: sennosides 8.6 mg Tablet PO (20:35)
[2023-01-30] VITALS (15 sets, daily range): BP systolic 97–135; BP diastolic 58–87; PULSE 74–95; RESP 15–23; O2SAT 96–98
--- NOTE | 2023-01-30 00:52 | PC.PHAR ---
RENAL DOSING FOR ZOSYN, CRCL >20 , increased Zosyn to 3.375gm q8h Thank you, Bety Guillaume RPh
[2023-01-30] MEDS: piperacillin-tazobactam 3.375 GM in sodium chloride 0.9% (plus) 50 ML IV ×2 (01:21→10:38)
[2023-01-30 03:25] LABS: Basophils % 0.3 %; Eosinophils # 0.5 10^3/uL (0.0-0.8); Hematocrit 32.3 % (37.0-47.0); Hemoglobin 9.7 g/dL (11.5-15.3); Lymphocytes # 1.9 10^3/uL (0.8-4.8); Lymphocytes % 30.1 %; Mean Corpuscular Hemoglobin 28.4 pg (28.0-34.0); Mean Corpuscular Volume 94.7 fl (81-99); Mean Platelet Volume 10.8 fL (7.4-10.4); Monocytes # 0.6 10^3/uL (0.2-0.9); Monocytes % 8.9 %; Neutrophils % 52.5 %; Nucleated Red Blood Cells % 0 %; Platelet Count 264 10^3/cmm (130-400); Red Blood Count 3.41 10^6/uL (4.1-5.3); Red Cell Distribution Width 15.3 % (12.1-15.1); White Blood Count 6.3 10^3/uL (4.0-10.0)
[2023-01-30 03:40] LABS: Alanine Aminotransferase < 5 U/L (0-33); Albumin Level 3.3 g/dL (3.5-5.2); Alkaline Phosphatase 62 U/L (35-105); Anion Gap 13.5 (5-19); Aspartate Amino Transferase 19 U/L (0-32); Blood Urea Nitrogen 28 mg/dL (8-23); Calcium 9.5 mg/dL (8.5-10.5); Carbon Dioxide 24 mmol/L (22-29); Chloride 108 mmol/L (98-107); Globulin 2.7 g/dL (1.3-4.6); Glomerular Filtration Rate 23.4 mL/min (90-130); Glucose 99 mg/dL (65-115); Magnesium 1.3 mg/dL (1.7-2.3); Osmolality Calculated 298 mOsm/kg (285-295); Potassium 4.5 mmol/L (3.5-5.1); Sodium 141 mmol/L (136-145); Total Bilirubin 0.2 mg/dL (0.15-1.2)
[2023-01-30] MEDS: pantoprazole 40 mg SDV IVP (03:48)
[2023-01-30] MEDS: heparin 5,000 unit/mL INJ 1 mL 5000 UNIT SUBCUT (03:48)
[2023-01-30 08:06] LABS: Glucose Point of Care 91 mg/dL (70-110)
[2023-01-30] MEDS: allopurinol 300 mg Tablet PO (08:44)
[2023-01-30] MEDS: atorvastatin 40 mg Tablet 20 MG PO (08:44)
[2023-01-30] MEDS: levothyroxine 100 mcg Tablet PO (08:44)
[2023-01-30] MEDS: aspirin 81 mg EC Tablet PO (08:44)
--- NOTE | 2023-01-30 10:46 | PC.CHAP ---
Pastoral Care Encounter/Spiritual Assessment Type of Contact [] Declined boat worker visit [] Patient/Family/Request visit [] Outpatient visit [] Follow-up visit [] Physician referral [] Code/Alert [x] Routine visit [] Staff referral [] Actively dying [x] Patient sleeping [] Family support [] [] Out of room [] Palliative care [] [] Receiving care in room [] Pre-surgical visit [] Trauma [] Long length of stay [x] ICU visit [] Other: Relational/Emotional Strength [] Patient feels connected with others/family/visitors/staff [] Distress [] Loneliness/isolation [] Abandonment Spirituality of Patient [] Person of Farzaneh [] Attends Mu-Ism of their [place]h [] Believes in Prayer [] Reads Bible or Advent materials [] There are Spiritual issues to be addressed Scientific Aide Interventions [x] Prayer [] Active listening [] Non-anxious presence [] Spiritual/emotional support [] Crisis/trauma care [] Spiritual counseling [] Bereavement support [] Provided bereavement packet [] Provided Bible/devotional materials [] Provided toy/stuffed animal, coloring book to patient or family member [] Provided Communion [] Anointing/[place] [] Salvation [x] Completed spiritual assessment [] Other: Impact on Illness or Injury [] Angry [] Fearful [] Anxious [] Often cries [] Exhaustion [] Unable to work [] Unable to attend christianity [] Unable to walk/stand [] Unable to read [] Unable to drive [] Unable to eat/drink [] Unable to sleep [] Unable to be with family [] Patient intubated [] Other: Summary Time spent with patient
[2023-01-30 11:40] LABS: Glucose Point of Care 158 mg/dL (70-110)
--- NOTE | 2023-01-30 11:43 | P.DS_ITS ---
Discharge Providers Date of Admission: 01/28/23 03:43 Date of Discharge: January 30, 2023 Attending Provider at Admission: Zeferino Lui Attending Provider at Discharge: Marimar Huber MD Primary Care Provider: Lexus Umanzor MD Diagnoses at Discharge Discharge Diagnosis (1) SIRS (systemic inflammatory response syndrome): Status: Acute (2) Acute hypotension: Status: Acute (3) SHANA (acute kidney injury): Status: Acute (4) Metabolic acidosis: Status: Acute (5) Abnormal urinalysis: Status: Acute (6) Troponin level elevated: Status: Acute (7) Hypothermia: Status: Acute (8) DM type 2 (diabetes mellitus, type 2): Status: Acute (9) Hypomagnesemia: Status: Acute (10) NSAID long-term use: Status: Acute (11) Cheilitis: Status: Acute (12) Anemia: Status: Acute (13) Pruritic rash: Status: Acute (14) Abdominal cramping: Status: Acute (15) Hypothyroidism: Status: Acute (16) Hypercalcemia: Status: Acute (17) LVH (left ventricular hypertrophy): Status: Acute (18) Morbid obesity: Status: Acute Reason for Visit Reason for Visit: BG/HTN/itching Brief History: 67-year-old lady with history of solitary kidney, DM2, HTN, HLD, hypothyroidism, chronic NSAID use, gout came into ER for evaluation due to malaise, generalized weakness of several days, previously constipated, has been taking lactulose for a while, now with multiple loose stools, abdominal cramping/pain.? Today she was also dizzy/subjectively presyncopal.? At home was found tachycardic, hypotensive by EMS also with intensely pruritic rash across the chest and arms for which she received 25 mg of Benadryl.? By the time of arrival to the hospital rash has resolved. In ER blood pressure 82/67, sinus tachycardia 108, hypothermic 96.3F.? Mild abdominal cramping, pain.? Leukocytosis 12.6, anemia 11.4.? Bicarb 20, anion gap 19.3, lactic acid 3.5.? BUN 44, creatinine 2.6.? Glucose 247.? Calcium 10.8, magnesium 1. Chest x-ray unremarkable. CT abdomen pelvis negative for acute abdominal pathology.?Received 3 L fluid bolus, empirically started on Zosyn after collection of blood cultures. Received pain and nausea medication. Initially upon presentation there was concern for possible sepsis, however this was later excluded but no conclusive evidence of infection was found. Her blood cultures remain negative. CT of the abdomen and pelvis did not show any acute infective process. Lactate normalized with hydration. She did have a significant SHANA with creatinine up to 2.6, prior creatinine 1.4 in September 2020. NSAIDs were discontinued. Lisinopril was also discontinued at discharge due to SHANA. Based on urine studies appear to be prerenal SHANA related to hypotension from GI losses. Kidney function was improving with hydration. Urine output greater than 1.5 L daily. Antibiotics were discontinued at discharge as all infective work-up remained overall negative.she is recommended to follow-up with primary care provider in the next 7 to 10 days for repeat creatinine check. Physical Exam Narrative: General: No acute distress, AO x3 HEENT: PERRLA, pupils bilaterally equal and reactive, pallors not present Chest: Normal vesicular breath sounds, no added sounds, equal good air entry bilaterally CVS: S1-S2 regular, no murmurs, no tachycardia, no gallops, no rubs Abdomen: Soft, nontender, no organomegaly, bowel sounds present Neuro: No focal deficits, no facial deformity, AO x3, power 5/5 in all limbs Urinary Catheter Management: Can: Cath Placed During This Visit: yes Reason for Continuing Indwelling Catheter: Accurate Measurement of Urinary Output in Critically Ill Patients Urinary Catheter Date of Insertion: 01/28/23 Urinary Catheter Time of Insertion: 04:00 Discharge Data Studies Completed and Pending Completed Studies During Hospitalization Category Date Time Status CT abdomen pelvis wo con [id number] Stat Cat Scan 01/28/23 02:03 Completed XR chest 1V portable [id number] Stat Exams 01/28/23 01:12 Completed CV. echo complete* [id number] Routine Ultrasound 01/28/23 03:54 Completed Pending at discharge Category Date Time Status Blood Culture Stat Lab 01/28/23 01:41 Results C DIFF [Clostridioides Difficile PCR] Routine Lab 01/28/23 03:48 Uncollected Complete Blood Count w/Auto AM LABS Lab 01/31/23 04:00 Ordered Comprehensive Metabolic Panel AM LABS Lab 01/31/23 04:00 Ordered Magnesium AM LABS Lab 01/31/23 04:00 Ordered Occult Blood Stool [Immunochemical Fecal OCB] Routine Lab 01/28/23 05:14 Uncollected Stool Culture, Bacterial [Enteric Bacterial Panel by Lab 01/28/23 03:49 Uncollected PCR] Routine Radiology Impressions Chest X-Ray 01/28/23 01:12 IMPRESSION: No acute findings. Abdomen/Pelvis CT 01/28/23 02:03 IMPRESSION: Negative for acute abdominopelvic pathology. COMMENTS: Consistent with the [employer]'s Incidental Findings Committee white paper (J Am Theresa Radiol 2018): Any incidental renal lesion less than 1 cm or classified as too small to characterize, or any incidental cystic renal lesion characterized as simple-appearing, is likely benign. No follow-up imaging is recommended for these lesions per consensus recommendations based on imaging criteria. Laboratory Results WBC 6.3 10^3/uL (4.0-10.0) 01/30/23 02:43 RBC 3.41 10^6/uL (4.1-5.3) L 01/30/23 02:43 Hgb 9.7 g/dL (11.5-15.3) L 01/30/23 02:43 Hct 32.3 % (37.0-47.0) L 01/30/23 02:43 MCV 94.7 fl (81-99) 01/30/23 02:43 MCH 28.4 pg (28.0-34.0) 01/30/23 02:43 MCHC 30.0 g/dL (30.0-36.0) 01/30/23 02:43 RDW 15.3 % (12.1-15.1) H 01/30/23 02:43 Plt Count 264 10^3/cmm (130-400) 01/30/23 02:43 MPV 10.8 fL (7.4-10.4) H 01/30/23 02:43 Neut % (Auto) 52.5 % 01/30/23 02:43 Lymph % (Auto) 30.1 % 01/30/23 02:43 [place] % (Auto) 8.9 % 01/30/23 02:43 Eos % (Auto) 8.0 % 01/30/23 02:43 Baso % (Auto) 0.3 % 01/30/23 02:43 Neut # (Auto) 3.30 10^3/uL (1.8-7.7) 01/30/23 02:43 Lymph # (Auto) 1.9 10^3/uL (0.8-4.8) 01/30/23 02:43 [place] # (Auto) 0.6 10^3/uL (0.2-0.9) 01/30/23 02:43 Eos # (Auto) 0.5 10^3/uL (0.0-0.8) 01/30/23 02:43 Baso # (Auto) 0.0 10^3/uL (0.0-0.1) 01/30/23 02:43 Nucleated RBC % (auto) 0 % 01/30/23 02:43 Nucleated RBCs # 0.0 /100WBC 01/30/23 02:43 PT 14.10 SECONDS (12.1-14.9) 01/28/23 01:05 INR 1.05 (0.8-1.2) 01/28/23 01:05 APTT 24.6 SECONDS (23.9-36.7) 01/28/23 01:05 Specimen Type Venous 01/28/23 03:48 Sample Site Not specified 01/28/23 03:48 Pedro Pablo Test N/a 01/28/23 03:48 VBG pH 7.37 (7.32-7.42) 01/28/23 03:48 VBG pCO2 43.5 mmHg (41-51) 01/28/23 03:48 VBG pO2 51.5 mmHg (25-40) H 01/28/23 03:48 VBG HCO3 24.8 mmol/L (24-28) 01/28/23 03:48 VBG Base Excess -0.7 mmol/L (-3.0-3.0) 01/28/23 03:48 VBG Hematocrit 33.3 % (37-47) L 01/28/23 03:48 O2 Delivery Device Nc 01/28/23 03:48 Television Director ID [email or web address] 01/28/23 03:48 Sodium 141 mmol/L (136-145) 01/30/23 02:43 Potassium 4.5 mmol/L (3.5-5.1) 01/30/23 02:43 Chloride 108 mmol/L (98-107) H 01/30/23 02:43 Carbon Dioxide 24 mmol/L (22-29) 01/30/23 02:43 Anion Gap 13.5 (5-19) 01/30/23 02:43 BUN 28 mg/dL (8-23) H 01/30/23 02:43 Creatinine 2.1 mg/dL (0.5-0.9) H 01/30/23 02:43 GFR Calculation 23.4 mL/min (90-130) L 01/30/23 02:43 Glucose 99 mg/dL (65-115) 01/30/23 02:43 POC Glucose 158 mg/dL (70-110) H 01/30/23 11:05 Estimat Average Glucose 108 01/28/23 01:05 Hemoglobin A1c 5.4 % (4.0-6.0) 01/28/23 01:05 Calculated Osmolality 298 mOsm/kg (285-295) H 01/30/23 02:43 Lactate 1.1 mmol/L (0.5-2.2) 01/29/23 11:50 Calcium 9.5 mg/dL (8.5-10.5) 01/30/23 02:43 Phosphorus 2.6 mg/dL (2.5-4.5) 01/28/23 06:57 Magnesium 1.3 mg/dL (1.7-2.3) L 01/30/23 02:43 Iron 30 ug/dL (37-145) L 01/28/23 01:05 TIBC 271 mcg/dl 01/28/23 01:05 % Saturation 11.0 % (20-50) L 01/28/23 01:05 Unsat Iron Binding 241 ug/dL (112-347) 01/28/23 01:05 Ferritin 62 ng/mL (15-150) 01/28/23 01:05 Total Bilirubin 0.2 mg/dL (0.15-1.2) 01/30/23 02:43 AST 19 U/L (0-32) 01/30/23 02:43 ALT < 5 U/L (0-33) 01/30/23 02:43 Alkaline Phosphatase 62 U/L (35-105) 01/30/23 02:43 Creatine Kinase 30 U/L (26-192) 01/28/23 01:05 Troponin T Baseline 16 ng/L (0-10) H 01/28/23 01:05 Troponin T 120 Minute 19.07 ng/L (0-10) H 01/28/23 03:10 Delta Troponin T 3.07 ABS# (0-10) 01/28/23 03:10 Troponin T Hi Sens 6Hr 24.31 ng/L (0-10) H 01/28/23 06:57 Troponin T Hi Sens 6Hr Delta 8.31 ng/L (0-12) 01/28/23 06:57 C-Reactive Protein 8.2 mg/L (0.0-4.9) H 01/28/23 01:05 NT-Pro-B Natriuret Pep 103 pg/mL (0-125) 01/28/23 01:05 Total Protein 6.0 g/dL (6.6-8.7) L 01/30/23 02:43 Albumin 3.3 g/dL (3.5-5.2) L 01/30/23 02:43 Globulin 2.7 g/dL (1.3-4.6) 01/30/23 02:43 Lipase 54 U/L (13-60) 01/28/23 01:05 Vitamin B12 417 pg/mL (232-1245) 01/28/23 01:05 Folate > 20.0 ng/mL (4.8-37.3) 01/28/23 01:05 TSH 6.20 uIU/mL (0.27-4.20) H 01/28/23 01:42 Free T4 1.63 ng/dL (0.82-1.77) 01/28/23 01:05 Random Cortisol 22.73 ug/dL (2.47-19.5) H 01/28/23 01:42 Urine Color Yellow (Yellow) 01/28/23 00:25 Urine Appearance Sl hazy (CLEAR) A 01/28/23 00:25 Urine pH 5 (5-7) 01/28/23 00:25 Ur Specific [place] 1.025 (1.005-1.030) 01/28/23 00:25 Urine Protein 2+ (Negative) H 01/28/23 00:25 Urine Glucose (UA) Norm (Normal) 01/28/23 00:25 Urine Ketones 1+ (Negative) H 01/28/23 00:25 Urine Blood Neg (Negative) 01/28/23 00:25 Urine Nitrate Negative (Negative) 01/28/23 00:25 Urine Bilirubin 1+ (Negative) H 01/28/23 00:25 Urine Urobilinogen 1 mg/dL (Negative) H 01/28/23 00:25 Ur Leukocyte Esterase Trace (Negative) H 01/28/23 00:25 Urine RBC 0-4 /hpf (0-2) H 01/28/23 00:25 Urine WBC 5-10 /hpf (0-5) H 01/28/23 00:25 Ur Squamous Epith Cells 0-4 /hpf (0-5) H 01/28/23 00:25 Calcium Oxalate Crystal 0-4 /hpf H 01/28/23 00:25 Amorphous Sediment 1+ /hpf 01/28/23 00:25 Urine Bacteria Trace /hpf (NONE) 01/28/23 00:25 Ur Random Sodium 49 mmol/L 01/28/23 00:25 Urine Creatinine 333 mg/dL (28-217) H 01/28/23 00:25 Serum Ketones Negative (Negative) 01/28/23 01:05 Vitals Last Vital Signs Temp 98.4 F 01/29/23 16:00 Pulse 95 01/30/23 09:00 Resp 15 01/30/23 08:00 BP 119/87 01/30/23 09:00 Pulse Ox 96 01/30/23 08:00 O2 Del Method 01/29/23 04:00 O2 Flow Rate 2 01/29/23 07:30 Discharge Plan Discharge Patient Disposition: Home Condition: Stable Prescriptions: Continued metformin 500 mg tablet 500 mg PO BID amlodipine 5 mg tablet 5 mg PO DAILY aspirin 81 mg tablet,delayed release (DR/EC) 81 mg PO DAILY levothyroxine 100 mcg tablet 100 mcg PO DAILY allopurinol 300 mg tablet 300 mg PO DAILY pravastatin 20 mg tablet 20 mg PO DAILY Discontinued lisinopril-hydrochlorothiazide 20-25 mg tablet 1 tab PO DAILY Discharge Orders: Discharge Order (Routine); Ordered 01/30/23 Ordered By: Marimar Huber Referrals: Lexus Umanzor MD [Primary Care Provider] - 2 weeks (February 11, 2023 at time of 10:00 am , / this is the soonest for a discharge hospital follow up ,if you feel you need to see clinic sooner please call to see if they have cancellations.) Discharge Diet: Usual diet Discharge Activity: Resume usual activity Patient Instructions: Acute Kidney Injury (DC), Basic Carbohydrate Counting (DC), Hypotension (DC), Type 2 Diabetes in the Older Adult (DC), Opioid Safety Discharge Attestations Time Spent in Discharge Care*: greater than 30 min Quality Metrics Clinical Quality Measures [ No reported AMI, CVA or VTE this stay] Coding Level of Care Code Acute Code for Chg Fwd Diagnoses SIRS (systemic inflammatory response syndrome) R65.10 Acute hypotension I95.9 SHANA (acute kidney injury) N17.9 Metabolic acidosis E87.20 Abnormal urinalysis R82.90 Troponin level elevated R77.8 Hypothermia T68.XXXA DM type 2 (diabetes mellitus, type 2) E11.9 Hypomagnesemia E83.42 NSAID long-term use Z79.1 Cheilitis K13.0 Anemia D64.9 Pruritic rash L28.2 Abdominal cramping R10.9 Hypothyroidism E03.9 Hypercalcemia E83.52 LVH (left ventricular hypertrophy) I51.7 Morbid obesity E66.01
--- NOTE | 2023-01-30 14:24 | PC.NURSE ---
Discharge Pt and granddaughter given discharge instructions. Pt's IV and contreras both discontinued and pt voided prior to leaving. All questions have been answered. Pt taken by wheelchair to personal vehicle with all belongings by NENA Crespo.
== END 2023-01-30 14:23 | disposition home or self-care (01) ==
LOC: ER 03:17 → ICU 03:21
PROVIDERS: Admitting Provider Internal Medicine; Emergency Provider Emergency Medicine; PCP Family Medicine; Visit Provider Student in an Organized Health Care Education/Training Program
DX: I95.9 Hypotension, unspecified (principal); R65.10 Systemic inflammatory response syndrome (SIRS) of non-infectious origin without acute organ dysfunction; N17.9 Acute kidney failure, unspecified; E87.20 Acidosis, unspecified; R82.90 Unspecified abnormal findings in urine; R77.8 Other specified abnormalities of plasma proteins; T68.XXXA Hypothermia, initial encounter; X58.XXXA Exposure to other specified factors, initial encounter; E11.9 Type 2 diabetes mellitus without complications; E83.42 Hypomagnesemia; Z79.1 Long term (current) use of non-steroidal anti-inflammatories (NSAID); K13.0 Diseases of lips; D64.9 Anemia, unspecified; L28.2 Other prurigo; R10.9 Unspecified abdominal pain; E03.9 Hypothyroidism, unspecified; E83.52 Hypercalcemia; I51.7 Cardiomegaly; E66.01 Morbid (severe) obesity due to excess calories; Z68.43 Body mass index [BMI] 50.0-59.9, adult; I10 Essential (primary) hypertension; I44.0 Atrioventricular block, first degree
CPT/HCPCS: 36415; 36416; 51701; 51702; 71045; 74176; 80048; 80053; 81001; 82009; 82533; 82550; 82570; 82607; 82728; 82746; 82803; 82962; 83036; 83540; 83550; 83605; 83690; 83735; 83880; 84100; 84300; 84439; 84443; 84484; 85025; 85610; 85730; 86140; 87040; 87086; 93005; 93306; 96365; 96372; 96375; 96376; 97161; 99285; C9113; G0378; J1644; J2405; J2543; J3010; J3475; J7030

== ENCOUNTER 2023-02-04 15:39 | Emergency (ER) | payer MEDICARE, SELFPAY ==
[2023-02-04] VITALS (7 sets, daily range): BP systolic 127–143; BP diastolic 69–89; PULSE 82–87; RESP 18; O2SAT 96–98; BMI 54.9
--- NOTE | 2023-02-04 15:43 | XRR_ITS ---
PROCEDURE INFORMATION: Exam: XR Abdomen Exam date and time: 02/04/2023 3:55 PM Age: 67 years old Clinical indication: Constipation; Abdominal pain; Generalized TECHNIQUE: Imaging protocol: Radiologic exam of the abdomen. Views: Frontal supine view of the abdomen. 1 View. COMPARISON: CT abdomen pelvis con [id number] 01/28/2023 2:15 AM FINDINGS: Gastrointestinal tract: Normal. No bowel dilation. . Negative for significant colonic fecal stasis. Bones/joints: Unremarkable. XR/XR KUB portable [id number] IMPRESSION: No acute findings.
--- NOTE | 2023-02-04 16:04 | W.ED.ABDPA2 ---
HPI - Abdominal Pain General: Chief Complaint: Nausea/Vomiting/Diarrhea Stated Complaint: ABDOMINAL PAIN/ NO BM IN 9 DAYS Time Seen by Provider: 02/04/23 15:41 History of Present Illness: Patient presents to the ER by EMS with complaints of abdominal pain. This pain is around the bellybutton. Patient says this pain started last night. Patient also complains of some nausea vomiting and diarrhea. Patient did take prune juice last night which helped her to have diarrhea. Otherwise patient says she has not had a solid bowel movement for the last 9 days. Patient also states she was recently here in the hospital for dehydration. MD elicited complaint: abdominal pain Pertinent past history: constipation Onset (ago): day(s) (This time wound to the) Pain Consistency: constant and colicky Location: Periumbilical Severity: moderate Quality: cramping and aching Radiation: none Migration to: no migration Exacerbating factors: nothing Associated Symptoms: Reports change in bowel habits, nausea and vomiting; Denies chills, dysuria and fever(s) Review of Systems General: Reports: 10 or more systems reviewed and unremarkable except in HPI and below Const: Denies: fever(s) or chills Eyes: Denies: change in vision ENMT: Denies: throat pain Card: Denies: chest pain, palpitations or irregular heart rhythm Resp: Denies: dyspnea, productive cough or non-productive cough GI: Reports: abdominal pain, nausea, vomiting and change in bowel habits : Denies: flank pain, difficulty voiding or dysuria Musc: Denies: neck pain or back pain Skin/Breast: Denies: rash or pruritus Neuro: Denies: headache(s), numbness in extremities or weakness in extremities Psych: Denies: anxiety or depression PFSH ED PFSH: Medical History DM type 2 (diabetes mellitus, type 2) Gout HLD (hyperlipidemia) HTN (hypertension) Hypothyroidism Lumbago NSAID long-term use Sciatica Snake bite Solitary kidney Surgical History History of ankle surgery Family History Other Diabetes Heart disease Social History Smoking and tobacco status: never smoked Lives independently: Yes Household members: none Marital status: Single Physical Exam Const: COMMON NORMALS: no acute distress, patient oriented x3, no limitations, healthy appearing, alert and well nourished NUTRITIONAL APPEARANCE: obese HENMT: COMMON NORMALS: normocephalic, atraumatic, hearing grossly normal bilaterally and moist oral mucous membranes HEAD & SCALP: normocephalic and atraumatic Eye: COMMON NORMALS: Equal, round and reactive pupils present, EOMs intact bilaterally, conjunctivae normal and no scleral icterus CONJUNCTIVA: Yes conjunctivae normal PUPIL: Yes Equal, round and reactive pupils present Neck/C-Spine: COMMON NORMALS: full ROM, no lymphadenopathy, supple, no meningeal signs, no JVD and Thyroid normal THYROID: Thyroid normal Chest: COMMONS NORMALS: normal inspection of the chest and normal palpation of entire chest wall Resp: COMMON NORMALS: normal respiratory effort, No retractions, No use of accessory muscles and clear to auscultation bilaterally AUSCULTATION: clear to auscultation bilaterally Cardio: COMMON NORMALS: no JVD, regular rate, regular rhythm, S1 normal heart sound present and S2 normal heart sound present RATE: regular rate RHYTHM: regular rhythm HEART SOUNDS: S1 normal heart sound present and S2 normal heart sound present GI: COMMON NORMALS: Normal to inspection, nondistended, normoactive bowel sounds present, Soft to palpation, non-tender, No hepatosplenomegaly present and no masses PALPATION: Yes Soft to palpation and Yes No hepatosplenomegaly present Neuro: COMMON NORMALS: patient oriented x3, CN's II-XII intact bilaterally, moves all extremities, no focal motor deficits and no sensory deficits noted SENSORIUM/ORIENTATION: Yes alert MENINGEAL SIGNS: Yes no meningeal signs Psych: COMMON NORMALS: mental status grossly normal, Normal thought process present, cooperative, normal affect, speech normal and activity/motor behavior normal SPEECH: Yes normal speech THOUGHT PROCESS: Normal thought process present Course Vital Signs: Vital signs: Vital Signs Pulse Rate 82 02/04/23 19:41 Respiratory Rate 18 02/04/23 19:41 Blood Pressure 128/73 02/04/23 19:41 Pulse Oximetry 97 02/04/23 19:41 Oxygen Delivery Me thod 02/04/23 19:00 MDM - Abdominal Pain Medical Decision Making Patient presents to the ER with complaints of nausea vomiting diarrhea as well as not having a solid bowel movement for 9 days. Patient was just put in the hospital for dehydration and acute kidney injury. Patient has appointment with her primary care physician within 1 week. Upon further history and physical exam of the patient as well as review of lab work and imaging that was done today all of which was benign and showed her kidneys are improving. Is thought to patient may be discharged home on some stomach medicine and is to keep her follow-up appointment with her primary care physician on the third. Patient is in agreements with this Differential Diagnosis Likely abdominal pain, constipation and gastroenteritis Medical Records I reviewed the patient's medical records. Lab Data I reviewed the patient's lab results. 02/04/23 16:26 02/04/23 16:26 Labs/Radiology: Radiology Impressions KUB X-Ray 02/04/23 15:43 IMPRESSION: No acute findings. Laboratory Results WBC 8.4 10^3/uL (4.0-10.0) 02/04/23 16: RBC 3.90 10^6/uL (4.1-5.3) L 02/04/23 16:26 Hgb 11.0 g/dL (11.5-15.3) L 02/04/23 16: Hct 35.8 % (37.0-47.0) L 02/04/23 16: MCV 91.8 fl (81-99) 02/04/23 16:26 MCH 28.2 pg (28.0-34.0) 02/04/23 16: MCHC 30.7 g/dL (30.0-36.0) 02/04/23 16:26 RDW 15.8 % (12.1-15.1) H 02/04/23 16:26 Plt Count 302 10^3/cmm (130-400) 02/04/23 16: MPV 10.4 fL (7.4-10.4) 02/04/23 16: Neut % (Auto) 70.3 % 02/04/23 16: Lymph % (Auto) 15.9 % 02/04/23 16: [place] % (Auto) 8.2 % 02/04/23 16: Eos % (Auto) 5.0 % 02/04/23 16: Baso % (Auto) 0.2 % 02/04/23 16: Neut # (Auto) 5.94 10^3/uL (1.8-7.7) 02/04/23 16: Lymph # (Auto) 1.3 10^3/uL (0.8-4.8) 02/04/23 16: [place] # (Auto) 0.7 10^3/uL (0.2-0.9) 02/04/23 16: Eos # (Auto) 0.4 10^3/uL (0.0-0.8) 02/04/23 16: Baso # (Auto) 0.0 10^3/uL (0.0-0.1) 02/04/23 16: Nucleated RBC % (auto) 0 % 02/04/23 16: Nucleated RBCs # 0.0 /100WBC 02/04/23 16:26 Sodium 137 mmol/L (136-145) 02/04/23 16:26 Potassium 4.8 mmol/L (3.5-5.1) 02/04/23 16:26 Chloride 99 mmol/L (98-107) 02/04/23 16:26 Carbon Dioxide 23 mmol/L (22-29) 02/04/23 16:26 Anion Gap 19.8 (5-19) H 02/04/23 16:26 BUN 26 mg/dL (8-23) H 02/04/23 16:26 Creatinine 1.5 mg/dL (0.5-0.9) H 02/04/23 16:26 GFR Calculation 34.4 mL/min (90-130) L 02/04/23 16:26 Glucose 102 mg/dL (65-115) 02/04/23 16:26 Calculated Osmolality 289 mOsm/kg (285-295) 02/04/23 16:26 Calcium 10.0 mg/dL (8.5-10.5) 02/04/23 16:26 Total Bilirubin 0.2 mg/dL (0.15-1.2) 02/04/23 16:26 AST 33 U/L (0-32) H 02/04/23 16:26 ALT 14 U/L (0-33) 02/04/23 16:26 Alkaline Phosphatase 84 U/L (35-105) 02/04/23 16:26 Total Protein 7.4 g/dL (6.6-8.7) 02/04/23 16:26 Albumin 4.2 g/dL (3.5-5.2) 02/04/23 16:26 Globulin 3.2 g/dL (1.3-4.6) 02/04/23 16:26 Urine Color Yellow (Yellow) 02/04/23 18:30 Urine Appearance Clear (CLEAR) 02/04/23 18:30 Urine pH 5 (5-7) 02/04/23 18:30 Ur Specific [place] 1.015 (1.005-1.030) 02/04/23 18:30 Urine Protein Neg (Negative) 02/04/23 18:30 Urine Glucose (UA) Norm (Normal) 02/04/23 18:30 Urine Ketones Negative (Negative) 02/04/23 18:30 Urine Blood Neg (Negative) 02/04/23 18:30 Urine Nitrate Negative (Negative) 02/04/23 18:30 Urine Bilirubin Neg (Negative) 02/04/23 18:30 Urine Urobilinogen Neg mg/dL (Negative) 02/04/23 18:30 Ur Leukocyte Esterase Negative (Negative) 02/04/23 18:30 Discharge Plan Discharge Patient Disposition: Home Clinical Impression: Nausea vomiting and diarrhea Abdominal pain Qualifiers: Abdominal location: periumbilical Qualified Code(s): R10.33 - Periumbilical pain Condition: Stable Prescriptions: New Pepcid 40 mg tablet 40 mg PO BID Qty: 20 0RF ondansetron 4 mg tablet,disintegrating 4 mg PO Q8H PRN (Reason: nausea and vomiting) Qty: 14 0RF No Action metformin 500 mg tablet 500 mg PO BID amlodipine 5 mg tablet 5 mg PO DAILY aspirin 81 mg tablet,delayed release (DR/EC) 81 mg PO DAILY levothyroxine 100 mcg tablet 100 mcg PO DAILY allopurinol 300 mg tablet 300 mg PO DAILY pravastatin 20 mg tablet 20 mg PO DAILY lisinopril-hydrochlorothiazide 20-25 mg Tablet 1 tab PO DAILY Discharge Orders: Discharge ED (Routine); Ordered 02/04/23 Ordered By: Castillo Allison Referrals: Lexus Umanzor MD [Primary Care Provider] - 1 week Discharge Diet: Advance as tolerated Discharge Activity: Resume usual activity Patient Instructions: Acute Nausea and Vomiting (DC), Abdominal Pain (ED) Coding Level of Care Code ED [place] for Perri Garza
[2023-02-04] MEDS: ondansetron 4 MG Tablet PO (16:43)
[2023-02-04 16:50] LABS: Basophils % 0.2 %; Eosinophils # 0.4 10^3/uL (0.0-0.8); Hematocrit 35.8 % (37.0-47.0); Lymphocytes # 1.3 10^3/uL (0.8-4.8); Lymphocytes % 15.9 %; Mean Corpuscular HGB Conc 30.7 g/dL (30.0-36.0); Mean Corpuscular Hemoglobin 28.2 pg (28.0-34.0); Mean Corpuscular Volume 91.8 fl (81-99); Mean Platelet Volume 10.4 fL (7.4-10.4); Monocytes # 0.7 10^3/uL (0.2-0.9); Monocytes % 8.2 %; Neutrophils # 5.94 10^3/uL (1.8-7.7); Neutrophils % 70.3 %; Nucleated Red Blood Cells % 0 %; Platelet Count 302 10^3/cmm (130-400); Red Cell Distribution Width 15.8 % (12.1-15.1); White Blood Count 8.4 10^3/uL (4.0-10.0)
[2023-02-04 17:27] LABS: Alanine Aminotransferase 14 U/L (0-33); Albumin Level 4.2 g/dL (3.5-5.2); Alkaline Phosphatase 84 U/L (35-105); Anion Gap 19.8 (5-19); Aspartate Amino Transferase 33 U/L (0-32); Blood Urea Nitrogen 26 mg/dL (8-23); Carbon Dioxide 23 mmol/L (22-29); Chloride 99 mmol/L (98-107); Globulin 3.2 g/dL (1.3-4.6); Glomerular Filtration Rate 34.4 mL/min (90-130); Glucose 102 mg/dL (65-115); Osmolality Calculated 289 mOsm/kg (285-295); Potassium 4.8 mmol/L (3.5-5.1); Sodium 137 mmol/L (136-145); Total Bilirubin 0.2 mg/dL (0.15-1.2); Total Protein 7.4 g/dL (6.6-8.7)
[2023-02-04] MEDS: sodium chloride 0.9% 1,000 ML 999 ML IV (17:40)
[2023-02-04] MEDS: fentaNYL 50 mcg/mL INJ 2mL IVP (17:40)
[2023-02-04 18:44] LABS: Add Urine Microscopic? NO; Charge for UA Resulting for Rev
[2023-02-04] MEDS: ketorolac 30 mg/mL INJ 15 MG IVP (18:56)
[2023-02-04 19:01] LABS: Bilirubin Urine Neg (Negative); Blood Urine Neg (Negative); Glucose Urine UA Norm (Normal); Ketones Urine Negative (Negative); Leukocyte Esterase Urine Negative (Negative); Nitrate Urine Negative (Negative); Protein Urine Neg (Negative); Specific Gravity, Urine 1.015 (1.005-1.030); Urine Appearance Clear (CLEAR); Urine Color Yellow (Yellow); Urobilinogen Urine Neg (Negative); pH Urine 5 (5-7)
== END 2023-02-04 19:44 | disposition home or self-care (01) ==
PROVIDERS: Family Medicine; Emergency Provider Emergency Medicine; PCP Family Medicine
DX: R10.33 Periumbilical pain (principal); R11.2 Nausea with vomiting, unspecified; R19.7 Diarrhea, unspecified; Z79.82 Long term (current) use of aspirin; Z79.84 Long term (current) use of oral hypoglycemic drugs; E11.9 Type 2 diabetes mellitus without complications; E78.5 Hyperlipidemia, unspecified; I10 Essential (primary) hypertension
CPT/HCPCS: 36415; 74018; 80053; 81003; 85025; 96361; 96374; 96375; 99284; J1885; J3010; J7030; Q0162

== ENCOUNTER → 2024-05-07 09:07 | Outpatient (BNVA) | payer OTHER, SELFPAY | PROVIDERS: PCP Family Medicine; Visit Provider Nurse Practitioner Family | DX: E11.9 Type 2 diabetes mellitus without complications (principal); E03.9 Hypothyroidism, unspecified; E78.2 Mixed hyperlipidemia; M10.9 Gout, unspecified; R51.9 Headache, unspecified; I10 Essential (primary) hypertension; G25.0 Essential tremor; Z78.0 Asymptomatic menopausal state; Z12.11 Encounter for screening for malignant neoplasm of colon; D64.9 Anemia, unspecified; Z53.9 Procedure and treatment not carried out, unspecified reason | CPT/HCPCS: 80053; 80061; 82043; 83036; 84443; 84550; 85025 ==

== ENCOUNTER 2024-06-04 13:02 | Outpatient (CLI) | payer MEDICARE, SELFPAY ==
--- NOTE | 2024-06-04 13:00 | CT_ITS ---
WS: [id number] CT HEAD NONCONTRAST HISTORY: New Onset Headache TECHNIQUE: Contiguous axial imaging performed through the brain in 2.5 mm imaging. Bone and soft tiss ue windows. Sagittal and coronal reformats reviewed. All CT scans at [facility] use at least one of these dose optimization techniques: automated exposure control; mA and/or kV adjustment per pa tient size (includes targeted exams where dose is matched to clinical indication); or iterative recon struction. DLP: 1090.62 mGy.cm COMPARISON: None available. No acute intracranial hemorrhage, midline shift or mass effect. Mild atrophy and mild small vessel ischemic disease. No prior infarct. No sulcal effacement. Ventricles: Normal size with no hydrocephalus. No inferior displacement of the cerebellar tonsils. Paranasal sinuses: As visualized are clear. Mastoid air cells: Well pneumatized. Calvarium and scalp: Skull is intact with no soft tissue edema or swelling. CT/CT head wo con* [id number] IMPRESSION: 1. No acute intracranial hemorrhage or edema. 2. Mild atrophy and mild small vessel ischemic disease. 3. No paranasal sinus disease.
== END 2024-06-04 13:03 | disposition home or self-care (01) ==
LOC: RAD 13:02
PROVIDERS: PCP Family Medicine; Visit Provider Nurse Practitioner Family
DX: R51.9 Headache, unspecified (principal)
CPT/HCPCS: 70450

== ENCOUNTER 2024-07-03 14:07 | Outpatient (CLI) | payer MEDICARE, SELFPAY ==
--- NOTE | 2024-07-03 14:45 | US_ITS ---
WS: [id number] Bilateral renal ultrasound, Clinical Data: CKD Comparison: None. Findings: The right kidney measures 12.3 cm x 5.4 cm x 5.0 cm and the left kidney is absent. There a simple cys t measuring 1.7 x 1.9 x 2.0 cm. The renal cortical margin is normal. No renal calculi are seen. Ther e are no right renal calculi or hydronephrosis. The abdominal aorta and inferior vena cava show no vascular abnormalities. The bladder was scanned and was not remarkable. US/US renal BI* [id number] Impression: 1. Absent left kidney. 2. Small right intrarenal cyst.
== END 2024-07-03 14:08 | disposition home or self-care (01) ==
PROVIDERS: PCP Family Medicine; Visit Provider Nurse Practitioner Family
DX: N18.9 Chronic kidney disease, unspecified (principal); Z90.5 Acquired absence of kidney; N28.1 Cyst of kidney, acquired
CPT/HCPCS: 76770

== ENCOUNTER → 2024-07-06 13:11 | Outpatient (BNVA) | payer MEDICARE, SELFPAY | PROVIDERS: PCP Family Medicine; Visit Provider Nurse Practitioner Family | DX: N18.32 Chronic kidney disease, stage 3b (principal); I10 Essential (primary) hypertension; E11.9 Type 2 diabetes mellitus without complications | CPT/HCPCS: 80053; 82310; 83970; 85025 ==

== ENCOUNTER → 2024-09-22 12:05 | Outpatient (BNVA) | payer MEDICARE, SELFPAY | PROVIDERS: PCP Nurse Practitioner Family; Visit Provider Nurse Practitioner Family | DX: M25.561 Pain in right knee (principal); M25.562 Pain in left knee; M19.91 Primary osteoarthritis, unspecified site; G89.29 Other chronic pain | CPT/HCPCS: 80053 ==

== ENCOUNTER → 2024-09-28 13:35 | Outpatient (BNVA) | payer MEDICARE, SELFPAY | PROVIDERS: PCP Nurse Practitioner Family; Visit Provider Nurse Practitioner Family | DX: M25.561 Pain in right knee (principal); M19.91 Primary osteoarthritis, unspecified site; M25.562 Pain in left knee; G89.29 Other chronic pain; M17.11 Unilateral primary osteoarthritis, right knee | CPT/HCPCS: 73562 ==

== ENCOUNTER → 2024-09-30 14:12 | Outpatient (BNVA) | payer MEDICARE, SELFPAY | PROVIDERS: PCP Nurse Practitioner Family; Visit Provider Nurse Practitioner | DX: M25.561 Pain in right knee (principal); M25.562 Pain in left knee; M17.0 Bilateral primary osteoarthritis of knee; M21.161 Varus deformity, not elsewhere classified, right knee; M21.162 Varus deformity, not elsewhere classified, left knee; E66.01 Morbid (severe) obesity due to excess calories; Z68.42 Body mass index [BMI] 45.0-49.9, adult | CPT/HCPCS: 73560; 73565; 99204 ==

== ENCOUNTER → 2025-04-21 12:21 | Outpatient (BNVA) | payer MEDICARE, SELFPAY | PROVIDERS: PCP Nurse Practitioner Family; Visit Provider Nurse Practitioner Family | DX: E11.9 Type 2 diabetes mellitus without complications (principal); E03.9 Hypothyroidism, unspecified | CPT/HCPCS: 80053; 80061; 83036; 84443; 85025 ==

== ENCOUNTER 2025-06-29 17:44 | Emergency (ER) | payer MEDICARE, SELFPAY ==
--- NOTE | 2025-06-29 17:48 | XRR_ITS ---
PROCEDURE INFORMATION: Exam: XR Chest Exam date and time: 06/29/2025 6:02 PM Age: 69 years old Clinical indication: Other: AMS TECHNIQUE: Imaging protocol: Radiologic exam of the chest. Views: 1 view. COMPARISON: CR XR chest 1V portable [id number] 01/28/2023 1:30 AM FINDINGS: Lungs: Linear opacity left lung base suggest subsegmental atelectasis. No infiltrate/edema or consolidation. Pleural spaces: No pleural effusion or pneumothorax. Heart/Mediastinum: Cardiac silhouette is near the upper limits of normal with single view exam. No significant cardiomegaly. Vasculature: Mild arteriosclerosis and tortuosity thoracic aorta. Bones/joints: Visualized osseous structures show no acute abnormality. XR/XR chest 1V portable [id number] IMPRESSION: Linear subsegmental atelectasis left lung base. No acute findings otherwise.
--- OUTSIDE RECORDS SUMMARY | 2025-06-29 17:54 | XMS_ITS | Encounter Summary ---
Author Organization [facility] Address [address] [place] [address] Phone Care Team Providers Care Com Writer Name Role Phone Wendy Sanchez Primary Care Provider [phone] Encounter Details Date Type Department Care Team (Late st Contact Info) Description 07/08/2024 Orders Only [facility] [address] [place] [address] Stage 3b chronic kidney disease (HCC) Social History Tobacco Use Types Packs/Day Years Used Date Smoking Tobacco: Never Assessed Comments Unknown Sex and Gender Information Value Date Recorded Sex Assigned at Not on file Legal Sex Female 12:33 PM EDT Gender Identity Not on file Sexual Orientation Not on file documented as of this encounter Plan of Treatment Not on file documented as of this encounter Visit Diagnoses Diagnosis Stage 3b chronic kidney disease (HCC) documented in this encounter Care Teams Com Writer Relationship Specialty Start Date End Date Wendy Sanchez NP-C [facility] [place] [address] [place] [address] [place] [address] PCP - General Family Medicine 11/12/24 documented as of this encounter
--- OUTSIDE RECORDS SUMMARY | 2025-06-29 17:54 | XMS_ITS | Clinical Summary ---
Author Organization [facility] Facility Address [address] [address] Care Team Providers Care Manager Surgery Name Role Phone Wendy Sanchez CELL ATTENDANT HELPERBrittanyC Primary Care Provider [phone] Allergies Active Allergy Reactions Criticality Noted Date Comments Sulfamethoxazole-Trimethoprim Hives 2023 Bactrim Medications pravastatin (PRAVACHOL) 20 MG tablet Take 1 tablet by mouth 1 (one) time each day Active nystatin (Nystop) powder APPLY UP TO 3 TIMES DAILY NEEDED FOR MOISTURE Active Lisinopril-hydro CHLOROthiazide (ZESTORETIC PO) 1 (one) time each day Active levothyroxine (SYNTHROID, LEVOTHROID) 100 MCG tablet Take 100 mcg by mouth 1 (one) time each day Active fluconazole (DIFLUCAN) 150 MG tablet Take 150 mg by mouth 1 (one) time each day Active famotidine (PEPCID) 40 MG tablet Take 1 tablet by mouth in the morning and 1 tablet in the evening. Active aspirin (ST PAT) 81 MG EC tablet Take 1 tablet by mouth 1 (one) time each day Active amLODIPine (NORVASC) 5 MG tablet Take 1 tablet by mouth 1 (one) time each day Active allopurinol (ZYLOPRIM) 300 MG tablet Take 300 mg by mouth 1 (one) time each day Active Cholecalciferol (Vitamin D3) 25 MCG tablet 1 (one) time each day Active omega-3 (FISH OIL) 300 MG capsule 1 (one) time each day Active Multiple Vitamins-Mineral s (CENTRUM SILVER PO) 1 (one) time each day Active propranolol (INDERAL) 20 MG tablet Take 20 mg by mouth 1 (one) time each day Active acetaminophen-co deine (TYLENOL with CODEINE #2) 300-15 MG tablet Take 1 tablet by mouth if needed 4 Active UNABLE TO FIND 1/2 cup Prune juice daily Active sodium bicarbonate 650 MG tablet Take 1 tablet (650 mg total) by mouth in the morning and 1 tablet (650 mg total) in the evening. 60 tablet 11 5 Active Active Problems No known active problems Social History Tobacco Use Types Packs/Day Years Used Date Smoking Tobacco: Never Smokeless Tobacco: Never Tobacco Cessation:Counseling Given: Not Answered Alcohol Use Standard Drinks/Week Comments Not Currently 0 (1 standard drink = 0.6 oz pur e alcohol) Comments Unknown Sex and Gender Information Value Date Recorded Sex Assigned at Not on file Legal Sex Female 12:33 PM EDT Gender Identity Not on file Sexual Orientation Not on file Last Filed Vital Signs Vital Sign Reading Time Taken Comments Blood Pressure 102/58 11/12/2024 11:00 AM 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 Pulse 77 11/12/2024 11:00 AM 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 Temperature - - Respiratory Rate - - Oxygen Saturation 97% 11/12/2024 11:00 AM 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 Inhaled Oxygen Concentration - - Weight 118 kg (260 lb 12.8 oz) 11/12/2024 11:00 AM 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 Height 162.6 cm (5' 4 ) 11/12/2024 11:00 AM 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 Body Mass Index 44.77 11/12/2024 11:00 AM 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 Plan of Treatment Health Maintenance Due Date Last Done Comments Breast Cancer Screening 1955 Colorectal Cancer Screening: Annual FOBT 2002 Colorectal Cancer Screening: Colonoscopy 2002 Colorectal Cancer Screening: Sigmoidoscopy 2002 Pneumococcal Vaccine: 50+ Years (2 of 2 - PPSV23, PCV20, or PCV21) 12/02/2018 10/07/2018 Diabetes: Hemoglobin A1C 07/16/2024 Diabetes: Ophthalmology Exam 07/16/2024 Diabetes: Pedal Pulse Checked 07/16/2024 Diabetes: Sensory Foot Exam 07/16/2024 Diabetes: Visual Foot Exam 07/16/2024 Influenza Vaccine (#1) 2025 9, 08/11/2018, 07/29/2017, Additional history exists Hepatitis B Vaccine Aged Out No longe r eligible based on patient's age to complete this topic Insurance [employer] [facility] ([id number]) Care Teams Manager Surgery Relationship Specialty Start Date End Date Wendy Sanchez NP-C [address] [place] [id number] [place] [id number] PCP - General Family Medicine 11/12/24
[2025-06-29 18:06] VITALS: BP 127/79; PULSE 79; TEMP 36.3; O2SAT 95; BMI 37.8
--- NOTE | 2025-06-29 18:10 | ECG_ITS ---
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 Measurements Intervals Mcgrath Rate: 73 P: 48 DE: 225 QRS: -40 QRSD: 127 T: 5 QT: 366 QTc: 404 Interpretive Statements SINUS RHYTHM WITH FIRST DEGREE AV BLOCK LEFT AXIS DEVIATION [QRS AXIS < -30] VOLTAGE CRITERIA FOR LVH [MEETS CRITERIA IN ONE OF: R(aVL), S(V1), R(V5), R(V5/V6)+S(V1)] POSSIBLE ANTERIOR MYOCARDIAL INFARCTION , PROBABLY OLD [30 ms Q WAVE IN V3/V4, OR R < 0.2 mV IN V4] Compared to ECG 01/28/2023 09:26:47 No significant changes Electronically Signed On 07-03-2025 08:54:28 CDT by Daniel Sotelo M.D. [email or web address]
[2025-06-29 18:45] LABS: Hematocrit 39.4 % (36-47); Hemoglobin 12.50 g/dL (11.27-16.99); Mean Corpuscular HGB Conc 31.7 g/dL (30-55); Mean Corpuscular Hemoglobin 30.9 pg (27-33); Mean Corpuscular Volume 97.3 fl (85-98); Nucleated Red Blood Cells % 0 %; Platelet Count 237 10^3/cmm (157-399); Red Blood Count 4.05 10^6/uL (3.85-5.65); White Blood Count 7.48 10^3/uL (3.29-11.43)
[2025-06-29 19:10] LABS: Alanine Aminotransferase < 5 U/L (0-33); Albumin Level 4.6 g/dL (3.5-5.2); Alkaline Phosphatase 100 U/L (35-105); Anion Gap 23.9 (5-19); Aspartate Amino Transferase 21 U/L (0-32); Blood Urea Nitrogen 51 mg/dL (8-23); Calcium 11.1 mg/dL (8.5-10.5); Carbon Dioxide 22 mmol/L (22-29); Chloride 100 mmol/L (98-107); Creatinine Clr Calc Pharmacy 23.6998; Globulin 3.7 g/dL (1.3-4.6); Glucose 94 mg/dL (65-115); Lipase 53 U/L (13-60); Magnesium 1.7 mg/dL (1.7-2.3); Osmolality Calculated 305 mOsm/kg (285-295); Potassium 4.9 mmol/L (3.5-5.1); Sodium 141 mmol/L (136-145); Thyroid Stimulating Hormone 0.91 uIU/mL (0.27-4.20); Total Protein 8.3 g/dL (6.6-8.7)
--- NOTE | 2025-06-29 20:12 | CTR_ITS ---
PROCEDURE INFORMATION: Exam: CT Head Without Contrast Exam date and time: 06/29/2025 8:28 PM Age: 69 years old Clinical indication: Altered mental status/memory loss; Confusion or disorientation; Additional info: Hallucinations TECHNIQUE: Imaging protocol: Computed tomography of the head without contrast. Radiation optimization: All CT scans at this facility use at least one of these dose optimization techniques: automated exposure control; mA and/or kV adjustment per patient size (includes targeted exams where dose is matched to clinical indication); or iterative reconstruction. COMPARISON: CT head wo con* [id number] 06/04/2024 1:07 PM RADIATION DOSE METRICS: Total DLP (mGy-cm): 1084.61 FINDINGS: Brain: Mild atrophic change. Mild periventricular low attenuation bilaterally suggesting mild chronic small-vessel disease change. No intracranial hemorrhage or hematoma is seen. No mass effect or shift of midline structures. No findings to indicate territorial or large vessel ischemic infarct. No significant change with prior exam. Cerebral ventricles: No significant ventriculomegaly. Paranasal sinuses: Visualized sinuses are unremarkable. No fluid levels. Mastoid air cells: Visualized mastoid air cells are well aerated. Bones: Bone windows of the skull show no acute abnormality. Soft tissues: Unremarkable. CT/CT head wo con* [id number] IMPRESSION: No acute intracranial abnormality or significant change with prior exam.
--- NOTE | 2025-06-29 20:13 | ED_ITS ---
HPI - Altered Mental Status 2 General: Chief Complaint: Altered Mental Status Stated Complaint: AMS Time Seen by Provider: 06/29/25 20:03 History of Present Illness: Patient is brought in by EMS after family states she was hallucinating. They states she was seeing bugs where there were any bugs. The patient states she was seeing bugs crawling on the chair that others were telling her were not there. She states she is no longer seeing them at this time. Patient is alert and oriented x 4. She denies any cold symptoms including no fever, cough, congestion, vomiting, diarrhea. Denies any chest pain, shortness of breath, or abdominal pain. Patient denies any recent changes to her medications or any new medications physical exam is unremarkable. Will check labs, CT head without IV contrast, and reassess. Differential diagnosis: Acute medication reaction, acute ICH, acute electrolyte abnormality, acute urinary tract infection Related Data Previous Rx's ?Medication ?Instructions ?Recorded nystatin 100,000 unit/gram topical 1 applic topical QI D #30 grams 05/07/24 ointment aspirin 81 mg tablet,delayed 81 mg PO DAILY 90 days #9 0 tabs 06/05/24 release pravastatin 20 mg tablet 20 mg PO DAILY 90 days #90 t abs 07/06/24 Held on 07/06/24. Instructions: Home Medication placed on hold at Doctor's office acetaminophen 300 mg-codeine 15 mg 1 tab PO TID PRN pa in 30 days #90 08/06/24 tablet tabs allopurinol 300 mg tablet 300 mg PO DAILY 90 days #90 tabs 04/21/25 amlodipine 5 mg tablet 5 mg PO DAILY 90 days #90 ta bs 04/21/25 famotidine 40 mg tablet (Pepcid) 40 mg PO BID 90 days #180 tabs 04/21/25 levothyroxine 100 mcg tablet 100 mcg PO DAILY 90 days #90 tabs 04/21/25 lisinopril 20 1 tab PO DAILY 90 days #90 t abs 04/21/25 mg-hydrochlorothiazide 25 mg tablet propranolol 20 mg tablet 20 mg PO DAILY 90 days #90 t abs 04/21/25 sulfamethoxazole 800 1 tab PO BID 5 days #10 tabs 06/29/25 mg-trimethoprim 160 mg tablet (Bactrim DS) Allergies Allergy/AdvReac Type Severity Reaction Status Date / Time No Known Allergies Allergy Verified 06/29/25 18:15 Review of Systems 2 Const: Denies: fever(s) or body aches Eyes: Denies: change in vision or blurry vision ENMT: Denies: throat pain or odynophagia Card: Denies: chest pain or palpitations Resp: Denies: dyspnea or productive cough GI: Denies: abdominal pain, nausea or vomiting Psych: Denies: anxiety or change in appetite PFSH ED 2 PFSH: Medical History (Updated 06/29/25 @ 22:02 by Romulo Jones MD) NSAID long-term use Hypothyroidism Gout Solitary kidney DM type 2 (diabetes mellitus, type 2) Sciatica Lumbago Snake bite HLD (hyperlipidemia) HTN (hypertension) Surgical History History of ankle surgery Family History Other Diabetes Heart disease Social History Smoking and tobacco/nicotine status: never used tobacco/nicotine Lives independently: Yes Household members: none Marital status: Single Physical Exam 2 Const: COMMON NORMALS: no acute distress, patient oriented x3, healthy appearing and alert HENMT: COMMON NORMALS: normocephalic and atraumatic HEAD & SCALP: n ormocephalic and atraumatic Eye: COMMON NORMALS: Equal, round and reactive pupils present and EOMs intact bilaterally PUPIL: Yes Equal, round and reactive pupils present Neck/C-Spine: COMMON NORMALS: full ROM and supple Resp: COMMON NORMALS: normal respiratory effort, No retractions and No use of accessory muscles Cardio: COMMON NORMALS: regular rate and regular rhythm RATE: regular rate RHYTHM: regular rhythm GI: COMMON NORMALS: Normal to inspection, nondistended, normoactive bowel sounds present, Soft to palpation and non-tender PALPATION: Yes Soft to palpation Extremity: COMMON NORMALS: normal to inspection and full ROM Neuro: COMMON NORMALS: patient oriented x3 SENSORIUM/ORIENTATION: Yes alert Psych: COMMON NORMALS: mental status grossly normal and cooperative Skin: COMMON NORMALS: no rashes or lesions noted and no wounds GENERAL SKIN EXAM: no rashes or lesions noted Course 2 Vital Signs: Vital signs: Vital Signs Temperature 97.4 F L 06/29/25 18:06 Pulse Rate 82 06/29/25 20:46 Blood Pressure 141/99 06/29/25 20:46 Pulse Oximetry 93 06/29/25 20:46 Oxygen Delivery Me thod Room Air 06/29/25 20:46 MDM - Altered Mental Status Medical Decision Making On reassessment the patient continues to be alert and oriented x 4 with no hallucinations at this time. Her urine is concerning for urinary tract infection. Will start her on antibiotics and discharged with precautions to return for worsening or changing symptoms. Lab Data 06/29/25 18:17 06/29/25 18:17 Radiology Impressions Chest X-Ray 06/29/25 17:48 IMPRESSION: Linear subsegmental atelectasis left lung base. No acute findings otherwise. Head CT 06/29/25 20:12 IMPRESSION: No acute intracranial abnormality or significant change with prior exam. Laboratory Results WBC 7.48 10^3/uL (3.29-11.43) 06/29/25 18:17 RBC 4.05 10^6/uL (3.85-5.65) 06/29/25 18:17 Hgb 12.50 g/dL (11.27-16.99) 06/29/25 18:17 Hct 39.4 % (36-47) 06/29/25 18:17 MCV 97.3 fl (85-98) 06/29/25 18:17 MCH 30.9 pg (27-33) 06/29/25 18:17 MCHC 31.7 g/dL (30-55) 06/29/25 18:17 RDW 14.6 % (12.1-15.1) 06/29/25 18:17 Plt Count 237 10^3/cmm (157-399) 06/29/25 18:17 MPV 11.5 fL (7.4-10.4) H 06/29/25 18:17 Neut % (Auto) 63.9 % 06/29/25 18:17 Lymph % (Auto) 21.4 % 06/29/25 18:17 [place] % (Auto) 8.8 % 06/29/25 18:17 Eos % (Auto) 4.9 % 06/29/25 18:17 Baso % (Auto) 0.7 % 06/29/25 18:17 Neut # (Auto) 4.78 10^3/uL (1.8-7.7) 06/29/25 18:17 Lymph # (Auto) 1.6 10^3/uL (0.8-4.8) 06/29/25 18:17 [place] # (Auto) 0.7 10^3/uL (0.2-0.9) 06/29/25 18:17 Eos # (Auto) 0.4 10^3/uL (0.0-0.8) 06/29/25 18:17 Baso # (Auto) 0.1 10^3/uL (0.0-0.1) 06/29/25 18:17 Nucleated RBC % (auto) 0 % 06/29/25 18:17 Nucleated RBCs # 0.0 /100WBC 06/29/25 18:17 Sodium 141 mmol/L (136-145) 06/29/25 18:17 Potassium 4.9 mmol/L (3.5-5.1) 06/29/25 18:17 Chloride 100 mmol/L (98-107) 06/29/25 18:17 Carbon Dioxide 22 mmol/L (22-29) 06/29/25 18:17 Anion Gap 23.9 (5-19) H 06/29/25 18:17 BUN 51 mg/dL (8-23) H 06/29/25 18:17 Creatinine 2.5 mg/dL (0.5-0.9) H 06/29/25 18:17 GFR Calculation Not Reportable 06/29/25 18:17 Glucose 94 mg/dL (65-115) 06/29/25 18:17 POC Glucose 86 mg/dL (70-110) 06/29/25 20:58 Calculated Osmolality 305 mOsm/kg (285-295) H 06/29/25 18:17 Calcium 11.1 mg/dL (8.5-10.5) H 06/29/25 18:17 Magnesium 1.7 mg/dL (1.7-2.3) 06/29/25 18:17 Total Bilirubin 0.6 mg/dL (0.15-1.2) 06/29/25 18:17 AST 21 U/L (0-32) 06/29/25 18:17 ALT < 5 U/L (0-33) 06/29/25 18:17 Alkaline Phosphatase 100 U/L (35-105) 06/29/25 18:17 Total Protein 8.3 g/dL (6.6-8.7) 06/29/25 18:17 Albumin 4.6 g/dL (3.5-5.2) 06/29/25 18:17 Globulin 3.7 g/dL (1.3-4.6) 06/29/25 18:17 Lipase 53 U/L (13-60) 06/29/25 18:17 TSH 0.91 uIU/mL (0.27-4.20) 06/29/25 18:17 Urine Color Yellow (Yellow) 06/29/25 21:07 Urine Appearance Clear (CLEAR) 06/29/25 21:07 Urine pH 5.5 (5-7) 06/29/25 21:07 Ur Specific [place] 1.016 (1.005-1.030) 06/29/25 21:07 Urine Protein 1+ (Negative) A 06/29/25 21:07 Urine Glucose (UA) Negative (Normal) 06/29/25 21:07 Urine Ketones 1+ (Negative) H 06/29/25 21:07 Urine Blood Negative (Negative) 06/29/25 21:07 Urine Nitrate Negative (Negative) 06/29/25 21:07 Urine Bilirubin Negative (Negative) 06/29/25 21:07 Urine Urobilinogen 1.0 mg/dL (Negative) 06/29/25 21:07 Ur Leukocyte Esterase 1+ (Negative) A 06/29/25 21:07 Urine RBC 0-4 /hpf (0-2) H 06/29/25 21:07 Urine WBC 10-15 /hpf (0-5) H 06/29/25 21:07 Ur Squamous Epith Cells 0-4 /hpf (0-5) H 06/29/25 21:07 Amorphous Sediment Not Reportable 06/29/25 21:07 Urine Bacteria None /hpf (NONE) 06/29/25 21:07 Hyaline Casts 0-4 /lpf H 06/29/25 21:07 All radiology interpretation(s) finalized by discharge Discharge Plan Discharge Patient Disposition: Home Clinical Impression: Acute cystitis Condition: Stable Prescriptions: New sulfamethoxazole-trimethoprim [Bactrim DS] 800-160 mg tablet 1 tab PO BID 5 Days Qty: 10 0RF No Action aspirin 81 mg tablet,delayed release (DR/EC) 81 mg PO DAILY 90 Days Qty: 90 1RF acetaminophen-codeine 300-15 mg tablet 1 tab PO TID PRN (Reason: pain) 30 Days Qty: 90 0RF nystatin 100,000 unit/gram ointment 1 applic topical QID Qty: 30 0RF pravastatin 20 mg tablet 20 mg PO DAILY 90 Days Qty: 90 1RF levothyroxine 100 mcg tablet 100 mcg PO DAILY 90 Days Qty: 90 1RF propranolol 20 mg tablet 20 mg PO DAILY 90 Days Qty: 90 1RF lisinopril-hydrochlorothiazide 20-25 mg tablet 1 tab PO DAILY 90 Days Qty: 90 1RF Pepcid 40 mg tablet 40 mg PO BID 90 Days Qty: 180 1RF amlodipine 5 mg tablet 5 mg PO DAILY 90 Days Qty: 90 1RF allopurinol 300 mg tablet 300 mg PO DAILY 90 Days Qty: 90 1RF Discharge Orders: Discharge ED (Routine); Ordered 06/29/25 Ordered By: Romulo Jones Referrals: Wendy Sanchez FNP-C [Primary Care Provider, Family Practice] Patient Instructions: Patient Portal & Joselin Instructions, Urinary Tract Infection - Women Print Language: Greenlandic Coding Level of Care Code ED Insemination Worker for Perri Garza
[2025-06-29 20:46] VITALS: BP 141/99; PULSE 82; O2SAT 93
[2025-06-29 21:16] LABS: Glucose Urine UA Negative (Normal); Nitrate Urine Negative (Negative); Specific Gravity, Urine 1.016 (1.005-1.030)
[2025-06-29 21:52] LABS: Add Urine Microscopic? YES; UA Manual Slide Review YES; UA Slide Review UA Slide Review Perf
[2025-06-29] MEDS: sulfamethoxazole-trimeth DS 160-800 mg Tablet 1 TAB PO (22:52)
== END 2025-06-29 22:52 | disposition home or self-care (01) ==
PROVIDERS: Emergency Medicine; Emergency Provider Emergency Medicine; PCP Nurse Practitioner Family
DX: N30.00 Acute cystitis without hematuria (principal); Z79.82 Long term (current) use of aspirin; E11.9 Type 2 diabetes mellitus without complications; E78.5 Hyperlipidemia, unspecified; I10 Essential (primary) hypertension
CPT/HCPCS: 36415; 36416; 70450; 71045; 80053; 81001; 82962; 83690; 83735; 84443; 85025; 93005; 99285; J9999

== ENCOUNTER → 2025-07-08 11:35 | Outpatient (BNVA) | payer MEDICARE, SELFPAY | PROVIDERS: PCP Nurse Practitioner Family; Visit Provider Nurse Practitioner Family | DX: N39.0 Urinary tract infection, site not specified (principal) | CPT/HCPCS: 81000 ==

== ENCOUNTER → 2025-07-27 11:11 | Outpatient (BNVA) | payer MEDICARE, SELFPAY | PROVIDERS: PCP Nurse Practitioner Family; Visit Provider Nurse Practitioner Family | DX: L29.9 Pruritus, unspecified (principal); R39.9 Unspecified symptoms and signs involving the genitourinary system | CPT/HCPCS: 80053; 81000; 85025; 87086 ==

== ENCOUNTER → 2025-08-10 12:42 | Outpatient (BNVA) | payer MEDICARE, SELFPAY | PROVIDERS: PCP Nurse Practitioner Family; Visit Provider Nurse Practitioner Family | DX: R71.8 Other abnormality of red blood cells (principal); N18.9 Chronic kidney disease, unspecified | CPT/HCPCS: 80069; 82043; 82607; 82746 ==